=== PATIENT | male | born 1950 | race Caucasian/White ===

== ENCOUNTER 2019-05-16 11:57 | Emergency (ER) | payer MEDICARE, MEDICAID ==
[~2019-05-16] VITALS: Ht 182.9 cm; Wt 99.8 kg
[~2019-05-16 11:57] MED LIST: ASCO100C2
== END 2019-05-16 14:14 | disposition home or self-care (01) ==
LOC: ER 11:57
DX: J20.9 Acute bronchitis, unspecified (principal); Z59.0 Homelessness
CPT/HCPCS: 71045

== ENCOUNTER 2022-01-07 11:49 | Inpatient (IN) | payer MEDICARE, MEDICAID ==
[~2022-01-07] VITALS: Ht 182.9 cm; Wt 107.6 kg
[2022-01-07] MEDS ORDERED: SODIUM CHLORIDE 0.9% 1,000 ML IV ONE ×5 (12:00→18:45)
[2022-01-07] MEDS ORDERED: cefTRIAXone 1GM/50ML D5W 50 ML IV ONE (12:45)
[2022-01-07] MEDS ORDERED: levoFLOXacin 500MG 100 ML IV ONE (12:45)
[2022-01-07 13:54] LABS: Hematocrit 31.3 % (41.0-53.0); Hemoglobin 8.5 g/dL (13.5-17.5); Mean Corpuscular Hemoglobin 16.6 pg (28.0-32.0); Mean Corpuscular Hgb Conc. 27.1 g/dL (32.0-36.0); Mean Corpuscular Volume 61.4 fL (80.0-100.0)
[2022-01-07 13:59] LABS: Red Cell Distribution Width 21.1 % (11.8-14.3)
[2022-01-07 14:05] LABS: White Blood Cell 36.2 10^3/uL (4.4-10.8)
[2022-01-07 14:07] LABS: Basophils % (manual) 0 (0.0-2.0); Blast Cells 0; Eosinophils % (manual) 0 (0-7); Myelocytes % 0; Promyelocytes % 0; Reactive Lymphocytes 0
[2022-01-07 14:14] LABS: Albumin 3.1 g/dL (3.4-5.0); BUN/Creatinine Ratio 8.9; Calcium 9.1 mg/dL (8.5-10.1); Magnesium 1.2 mg/dL (1.6-2.6)
[2022-01-07] MEDS ORDERED: MORPHINE SULFATE INJ 2 MG/ml SYRG IV ONE (14:15)
[2022-01-07] MEDS ORDERED: ONDANSETRON HCL 4 MG/2 ML VIAL IV ONE (14:15)
[2022-01-07 14:17] LABS: Bilirubin, Total 1.5 mg/dL (0.2-1.0); Lactic Acid w/Reflex 10.5 mmol/L (0.4-2.0); Total Protein 6.6 g/dL (6.4-8.2)
[2022-01-07 14:25] LABS: Band Neutrophils % (manual) 37; Lymphocytes % (manual) 3 (10.0-50.0); Metamyelocytes % 5; Monocytes % (manual) 7 (0-12)
[2022-01-07] MEDS ORDERED: HYDROcodone-ACET 5/325MG TAB PO PRN (15:15)
[2022-01-07] MEDS ORDERED: NITROGLYCERIN 0.4 MG SL TAB SL PRN (15:15)
[2022-01-07] MEDS ORDERED: SODIUM CHLORIDE 0.9% 1,000 ML IV SCH ×2 (15:15→15:30)
[2022-01-07] MEDS ORDERED: MORPHINE SULFATE INJ 2 MG/ml SYRG IV PRN (15:15)
[2022-01-07] MEDS ORDERED: DEXTROSE (50%) 50ML SYRG IV PRN (15:45)
[2022-01-07] MEDS ORDERED: LORazepam 2MG/ML-1ML VIAL IV ONE (15:45)
[2022-01-07] MEDS: MORPHINE SULFATE INJ 2 MG/ml SYRG IV PRN (15:52)
[2022-01-07] MEDS ORDERED: SODIUM BICARBONATE 50ML VIAL 50 ML in SOD CHL 0.45% 1,000 ML IV SCH (16:30)
[2022-01-07] MEDS: ACCU-CHEK COMFORT CURVE STRIP VI SCH ×2 (16:52→22:00)
[2022-01-07] MEDS: InsuLIN REG 1unit/0.01ml Soln (100units/ml) SC SCH ×2 (16:52→22:00)
[2022-01-07] MEDS: MAGNESIUM SULFATE 1GM/100ML 100 ML IV SCH ×2 (17:12→18:02)
[2022-01-07] MEDS: SODIUM BICARBONATE 50ML VIAL 50 ML in SOD CHL 0.45% 1,000 ML IV SCH (17:30)
[2022-01-07] MEDS ORDERED: ALBUMIN 5% 50 ML IV ONE (18:45)
[2022-01-07] MEDS ORDERED: NOREPINEPHRINE 8 MG/250ML KIT 250 ML IV ONE (19:23)
[2022-01-07] MEDS: NOREPINEPHRINE 8 MG/250ML KIT 250 ML IV SCH (19:30)
[2022-01-07] MEDS ORDERED: ROCURONIUM 10MG/ML 10ML VIAL IV ONE ×2 (21:31→22:00)
[2022-01-07] MEDS ORDERED: ETOMIDATE (2MG/ML) 20ML VIAL IV ONE ×2 (21:32→22:00)
[2022-01-07 21:35] VITALS: BP 114/42
[2022-01-07] MEDS ORDERED: MIDAZOLAM DRIP 50 mg/50mL 50 ML IV ONE (21:38)
[2022-01-07] MEDS: MIDAZOLAM DRIP 50 mg/50mL 50 ML IV SCH (21:45)
[2022-01-07] MEDS ORDERED: PROPOFOL 100 ML IV SCH (21:45)
[2022-01-07 21:50] LABS: Cholesterol < 50 mg/dL (< 200); LDL Cholesterol 2 mg/dL (< 100); Lactic Acid w/Reflex 7.2 mmol/L (0.4-2.0); Triglycerides 25 mg/dL (< 150)
[2022-01-07] MEDS ORDERED: PROPOFOL 100 ML IV ONE (21:52)
[2022-01-07 21:59] LABS: HDL Cholesterol 47 mg/dL (40-59)
[2022-01-07] MEDS: PROPOFOL 100 ML IV SCH (22:00)
[2022-01-07] MEDS: CLINDAMYCIN 600MG IV 50 ML IV SCH (22:51)
[2022-01-07 23:58] VITALS: BP 111/69
[2022-01-08] VITALS (69 sets, daily range): BP systolic 87–130; BP diastolic 37–69
[2022-01-08] MEDS: SODIUM BICARBONATE 50ML VIAL 50 ML in SOD CHL 0.45% 1,000 ML IV SCH (03:00)
[2022-01-08 04:55] LABS: Hematocrit 30.2 % (41.0-53.0); Mean Corpuscular Hgb Conc. 26.6 g/dL (32.0-36.0)
[2022-01-08 04:56] LABS: Mean Corpuscular Hemoglobin 16.8 pg (28.0-32.0); Mean Corpuscular Volume 63.1 fL (80.0-100.0); Red Blood Cells 4.79 10^6/uL (4.5-5.90)
[2022-01-08 05:15] LABS: BUN/Creatinine Ratio 9.5; Phosphorus 6.7 mg/dL (2.5-4.90)
[2022-01-08 05:25] LABS: Potassium 5.7 mmol/L (3.5-5.1); Red Cell Distribution Width 21.1 % (11.8-14.3); White Blood Cell 32.6 10^3/uL (4.4-10.8)
[2022-01-08 05:26] LABS: Basophils % (manual) 0 (0.0-2.0); Blast Cells 0; Eosinophils % (manual) 0 (0-7); Myelocytes % 0; Promyelocytes % 0; Reactive Lymphocytes 0
[2022-01-08] MEDS: ACCU-CHEK COMFORT CURVE STRIP VI SCH ×4 (06:47→22:16)
[2022-01-08] MEDS: InsuLIN REG 1unit/0.01ml Soln (100units/ml) SC SCH ×4 (06:48→22:50)
[2022-01-08] MEDS: CLINDAMYCIN 600MG IV 50 ML IV SCH ×3 (06:49→22:15)
[2022-01-08] MEDS ORDERED: SODIUM ZIRCONIUM CYCL 10 GM PAK PO ONE (07:00)
[2022-01-08] MEDS ORDERED: SODIUM BICARBONATE 50ML VIAL 150 ML in SOD CHL 0.45% 1,000 ML IV SCH (07:15)
[2022-01-08] MEDS ORDERED: SODIUM BICARBONATE 8.4 % INJ 50ML VIAL IV ONE (07:15)
[2022-01-08] MEDS: PROPOFOL 100 ML IV SCH ×2 (07:28→22:51)
[2022-01-08 07:30] LABS: Band Neutrophils % (manual) 71; Lymphocytes % (manual) 7 (10.0-50.0); Metamyelocytes % 1; Monocytes % (manual) 3 (0-12)
[2022-01-08] MEDS ORDERED: ACETAMINOPHEN 650 MG RECT SUPP PR ONE (08:45)
[2022-01-08] MEDS: cefTRIAXone 1GM/50ML D5W 50 ML IV SCH (09:00)
[2022-01-08] MEDS ORDERED: ENOXAPARIN SOD 40 MG/0.4 ML SYRINGE SC SCH (10:00)
[2022-01-08] MEDS: SODIUM ZIRCONIUM CYCL 10 GM PAK GT SCH ×2 (10:15→22:15)
[2022-01-08] MEDS: SODIUM BICARBONATE 50ML VIAL 150 ML in SOD CHL 0.45% 1,000 ML IV SCH ×2 (10:30→20:02)
[2022-01-08 11:36] LABS: Alcohol, Urine < 3.0 mg/dL (0-10); Amphetamine Screen, Urine POSITIVE (NEGATIVE); Barbiturate Scree,Urine NEGATIVE (NEGATIVE); Benzodiazephine Screen, Urine POSITIVE (NEGATIVE); Cannabinoid Screen, Urine NEGATIVE (NEGATIVE); Cocaine Screen, Urine NEGATIVE (NEGATIVE); Opiate Scree,Urine POSITIVE (NEGATIVE); Phencyclidine Screen, Urine NEGATIVE (NEGATIVE)
[2022-01-08 11:51] LABS: Protein, Urine 352.8 mg/dL (0.0-11.9)
[2022-01-08] MEDS: CALCIUM ACETATE 667 MG CAP NG SCH ×2 (13:26→22:16)
[2022-01-08] MEDS: BUMETANIDE INJECTION 12.5 MG in GIVE UN-DILUTED 0 ML IV SCH (13:27)
[2022-01-08 13:42] LABS: Urine Blood 250 /uL (Negative)
[2022-01-08] MEDS: NOREPINEPHRINE 8 MG/250ML KIT 250 ML IV SCH ×2 (17:18→22:53)
[2022-01-08] MEDS: VASOPRESSIN 50 UNITS in D5W 5% 247.5 ML IV SCH (20:16)
[2022-01-08] MEDS: MIDAZOLAM DRIP 50 mg/50mL 50 ML IV SCH (22:17)
[2022-01-09] VITALS (103 sets, daily range): BP systolic 88–141; BP diastolic 45–65
[2022-01-09] MEDS: MIDAZOLAM DRIP 50 mg/50mL 50 ML IV SCH ×5 (02:23→20:28)
[2022-01-09 05:14] LABS: Hemoglobin 7.3 g/dL (13.5-17.5)
[2022-01-09 05:15] LABS: Hematocrit 25.4 % (41.0-53.0); Mean Corpuscular Hemoglobin 17.1 pg (28.0-32.0); Mean Corpuscular Hgb Conc. 28.8 g/dL (32.0-36.0); Mean Corpuscular Volume 59.2 fL (80.0-100.0); White Blood Cell 29.7 10^3/uL (4.4-10.8)
[2022-01-09] MEDS: SODIUM BICARBONATE 50ML VIAL 150 ML in SOD CHL 0.45% 1,000 ML IV SCH ×2 (05:18→14:06)
[2022-01-09] MEDS: SODIUM ZIRCONIUM CYCL 10 GM PAK GT SCH (05:36)
[2022-01-09] MEDS: CALCIUM ACETATE 667 MG CAP NG SCH ×3 (05:36→22:17)
[2022-01-09] MEDS: CLINDAMYCIN 600MG IV 50 ML IV SCH ×3 (05:37→22:17)
[2022-01-09 05:50] LABS: Basophils % (manual) 0 (0.0-2.0); Blast Cells 0; Metamyelocytes % 0; Myelocytes % 0; Promyelocytes % 0; Reactive Lymphocytes 0
[2022-01-09 05:51] LABS: BUN/Creatinine Ratio 12.2; Calcium 7.1 mg/dL (8.5-10.1); Potassium 4.8 mmol/L (3.5-5.1)
[2022-01-09 06:06] LABS: Lactic Acid w/Reflex 2.4 mmol/L (0.4-2.0)
[2022-01-09] MEDS: ACCU-CHEK COMFORT CURVE STRIP VI SCH ×4 (07:00→20:30)
[2022-01-09] MEDS: InsuLIN REG 1unit/0.01ml Soln (100units/ml) SC SCH ×4 (07:00→20:30)
[2022-01-09 07:39] LABS: Band Neutrophils % (manual) 34; Eosinophils % (manual) 3 (0-7); Lymphocytes % (manual) 1 (10.0-50.0); Monocytes % (manual) 1 (0-12)
[2022-01-09] MEDS: BUMETANIDE INJECTION 12.5 MG in GIVE UN-DILUTED 0 ML IV SCH (07:55)
[2022-01-09] MEDS: ENOXAPARIN SOD 30 MG/0.3 ML SYRINGE SC SCH (09:01)
[2022-01-09] MEDS: PANTOPRAZOLE 40 MG/10 ML VIAL INJ IV SCH (09:02)
[2022-01-09] MEDS: cefTRIAXone 1GM/50ML D5W 50 ML IV SCH (09:02)
[2022-01-09] MEDS: PROPOFOL 100 ML IV SCH ×2 (09:03→18:43)
[2022-01-09] MEDS: NOREPINEPHRINE 8 MG/250ML KIT 250 ML IV SCH ×2 (09:03→18:43)
[2022-01-09] MEDS: VASOPRESSIN 50 UNITS in D5W 5% 247.5 ML IV SCH (10:46)
[2022-01-09] MEDS: ACETAMINOPHEN 325 MG TAB PO PRN (15:37)
[2022-01-09] MEDS ORDERED: LABETALOL HCL 5 MG/ML 4ML SYRINGE IV ONE (16:15)
[2022-01-09] MEDS ORDERED: LABETALOL HCL 5 MG/ML 4ML SYRINGE IV PRN (16:15)
[2022-01-10] VITALS (107 sets, daily range): BP systolic 88–117; BP diastolic 50–65
[2022-01-10] MEDS: SODIUM BICARBONATE 50ML VIAL 150 ML in SOD CHL 0.45% 1,000 ML IV SCH ×2 (00:27→08:34)
[2022-01-10] MEDS: MIDAZOLAM DRIP 50 mg/50mL 50 ML IV SCH (00:28)
[2022-01-10] MEDS: NOREPINEPHRINE 8 MG/250ML KIT 250 ML IV SCH (00:28)
[2022-01-10] MEDS: PROPOFOL 100 ML IV SCH ×2 (00:28→04:44)
[2022-01-10 05:36] LABS: Hemoglobin 7.2 g/dL (13.5-17.5)
[2022-01-10 05:39] LABS: Hematocrit 24.6 % (41.0-53.0); Mean Corpuscular Hemoglobin 16.8 pg (28.0-32.0); Mean Corpuscular Hgb Conc. 29.2 g/dL (32.0-36.0); Mean Corpuscular Volume 57.4 fL (80.0-100.0); Red Blood Cells 4.28 10^6/uL (4.5-5.90); White Blood Cell 25.8 10^3/uL (4.4-10.8)
[2022-01-10 05:41] LABS: Red Cell Distribution Width 20.6 % (11.8-14.3)
[2022-01-10 05:42] LABS: Basophils % (manual) 0 (0.0-2.0); Blast Cells 0; Eosinophils % (manual) 0 (0-7); Metamyelocytes % 0; Myelocytes % 0; Promyelocytes % 0; Reactive Lymphocytes 0
[2022-01-10 05:52] LABS: BUN/Creatinine Ratio 17.2; Calcium 7.3 mg/dL (8.5-10.1); Potassium 3.5 mmol/L (3.5-5.1)
[2022-01-10] MEDS: CLINDAMYCIN 600MG IV 50 ML IV SCH ×3 (05:56→23:22)
[2022-01-10] MEDS: CALCIUM ACETATE 667 MG CAP NG SCH ×3 (05:56→23:22)
[2022-01-10] MEDS: BUMETANIDE INJECTION 12.5 MG in GIVE UN-DILUTED 0 ML IV SCH (05:56)
[2022-01-10 06:21] LABS: Band Neutrophils % (manual) 34; Lymphocytes % (manual) 6 (10.0-50.0); Monocytes % (manual) 3 (0-12)
[2022-01-10] MEDS: ACCU-CHEK COMFORT CURVE STRIP VI SCH ×4 (06:47→22:00)
[2022-01-10] MEDS: InsuLIN REG 1unit/0.01ml Soln (100units/ml) SC SCH ×4 (06:48→22:00)
[2022-01-10] MEDS: cefTRIAXone 1GM/50ML D5W 50 ML IV SCH (09:02)
[2022-01-10] MEDS: ENOXAPARIN SOD 30 MG/0.3 ML SYRINGE SC SCH (09:17)
[2022-01-10] MEDS: PANTOPRAZOLE 40 MG/10 ML VIAL INJ IV SCH (09:17)
[2022-01-10] MEDS: SODIUM CHLORIDE 0.9% 1,000 ML IV SCH (12:15)
[2022-01-10] MEDS: VASOPRESSIN 50 UNITS in D5W 5% 247.5 ML IV SCH (13:15)
[2022-01-10] MEDS: POTASSIUM CHL 20MEQ/100ML 100 ML IV SCH ×2 (14:04→16:23)
[2022-01-11] VITALS (88 sets, daily range): BP systolic 90–109; BP diastolic 42–63
[2022-01-11 05:57] LABS: Hemoglobin 7.3 g/dL (13.5-17.5); Mean Corpuscular Volume 57.3 fL (80.0-100.0)
[2022-01-11 06:00] LABS: Hematocrit 25.2 % (41.0-53.0); Mean Corpuscular Hemoglobin 16.7 pg (28.0-32.0); Mean Corpuscular Hgb Conc. 29.1 g/dL (32.0-36.0); Red Cell Distribution Width 20.4 % (11.8-14.3); White Blood Cell 16.6 10^3/uL (4.4-10.8)
[2022-01-11 06:16] LABS: Potassium 3.5 mmol/L (3.5-5.1)
[2022-01-11 06:19] LABS: Basophils % (manual) 0 (0.0-2.0); Blast Cells 0; Promyelocytes % 0; Reactive Lymphocytes 0
[2022-01-11 06:21] LABS: BUN/Creatinine Ratio 24.4; Phosphorus 3.8 mg/dL (2.5-4.90)
[2022-01-11] MEDS: InsuLIN REG 1unit/0.01ml Soln (100units/ml) SC SCH ×4 (07:00→22:00)
[2022-01-11] MEDS: ACCU-CHEK COMFORT CURVE STRIP VI SCH ×4 (07:04→22:00)
[2022-01-11] MEDS: CLINDAMYCIN 600MG IV 50 ML IV SCH ×3 (07:44→22:00)
[2022-01-11] MEDS: CALCIUM ACETATE 667 MG CAP NG SCH ×3 (07:45→22:00)
[2022-01-11] MEDS: PANTOPRAZOLE 40 MG/10 ML VIAL INJ IV SCH (09:10)
[2022-01-11] MEDS: cefTRIAXone 1GM/50ML D5W 50 ML IV SCH (09:10)
[2022-01-11] MEDS: ENOXAPARIN SOD 30 MG/0.3 ML SYRINGE SC SCH (09:11)
[2022-01-11] MEDS: BUMETANIDE INJECTION 12.5 MG in GIVE UN-DILUTED 0 ML IV SCH (09:24)
[2022-01-11] MEDS: SODIUM CHLORIDE 0.9% 1,000 ML IV SCH ×4 (09:29→20:15)
[2022-01-11 09:41] LABS: Band Neutrophils % (manual) 16; Eosinophils % (manual) 4 (0-7); Lymphocytes % (manual) 14 (10.0-50.0); Metamyelocytes % 2; Monocytes % (manual) 11 (0-12); Myelocytes % 1
[2022-01-11] MEDS: VASOPRESSIN 50 UNITS in D5W 5% 247.5 ML IV SCH (13:15)
[2022-01-11] MEDS ORDERED: LACTULOSE 20Gm/30ML SOLN PO ONE (19:15)
[2022-01-11] MEDS ORDERED: Jevity 1.2 Cal/Fiber 1 Liter GT SCH (19:15)
[2022-01-11] MEDS: NOREPINEPHRINE 8 MG/250ML KIT 250 ML IV SCH (19:30)
[2022-01-11] MEDS: MIDAZOLAM DRIP 50 mg/50mL 50 ML IV SCH (22:00)
[2022-01-11] MEDS: PROPOFOL 100 ML IV SCH (22:00)
[2022-01-12] VITALS (91 sets, daily range): BP systolic 102–130; BP diastolic 60–85
[2022-01-12 06:29] LABS: Hemoglobin 7.7 g/dL (13.5-17.5)
[2022-01-12 06:32] LABS: Hematocrit 26.5 % (41.0-53.0); Mean Corpuscular Hemoglobin 16.7 pg (28.0-32.0); Mean Corpuscular Hgb Conc. 29.2 g/dL (32.0-36.0); Mean Corpuscular Volume 57.1 fL (80.0-100.0); Red Blood Cells 4.63 10^6/uL (4.5-5.90); White Blood Cell 12.3 10^3/uL (4.4-10.8)
[2022-01-12 06:58] LABS: Calcium 8.6 mg/dL (8.5-10.1); Potassium 3.2 mmol/L (3.5-5.1)
[2022-01-12 07:00] LABS: Red Cell Distribution Width 20.9 % (11.8-14.3)
[2022-01-12] MEDS: ACCU-CHEK COMFORT CURVE STRIP VI SCH ×4 (07:00→22:00)
[2022-01-12] MEDS: InsuLIN REG 1unit/0.01ml Soln (100units/ml) SC SCH ×4 (07:00→22:00)
[2022-01-12 07:01] LABS: Basophils % (manual) 0 (0.0-2.0); Blast Cells 0; Myelocytes % 0; Promyelocytes % 0; Reactive Lymphocytes 0
[2022-01-12] MEDS: CALCIUM ACETATE 667 MG CAP NG SCH ×3 (08:09→22:00)
[2022-01-12] MEDS: CLINDAMYCIN 600MG IV 50 ML IV SCH ×3 (08:09→23:10)
[2022-01-12] MEDS: cefTRIAXone 1GM/50ML D5W 50 ML IV SCH (10:01)
[2022-01-12] MEDS: PANTOPRAZOLE 40 MG/10 ML VIAL INJ IV SCH (10:01)
[2022-01-12] MEDS: ENOXAPARIN SOD 30 MG/0.3 ML SYRINGE SC SCH (10:01)
[2022-01-12] MEDS: BUMETANIDE INJECTION 12.5 MG in GIVE UN-DILUTED 0 ML IV SCH (10:45)
[2022-01-12 11:23] LABS: Band Neutrophils % (manual) 20; Eosinophils % (manual) 3 (0-7); Lymphocytes % (manual) 34 (10.0-50.0); Metamyelocytes % 2; Monocytes % (manual) 7 (0-12)
[2022-01-12] MEDS ORDERED: Glucerna 1.2 Cal 1Liter BOTTLE GT SCH (11:30)
[2022-01-12] MEDS: LACTULOSE 20Gm/30ML SOLN PO SCH ×2 (12:00→18:00)
[2022-01-12] MEDS: SODIUM CHLORIDE 0.9% 1,000 ML IV SCH ×2 (12:13→20:15)
[2022-01-12] MEDS: POTASSIUM CHL 20MEQ/100ML 100 ML IV SCH ×3 (12:30→18:30)
[2022-01-12] MEDS: VASOPRESSIN 50 UNITS in D5W 5% 247.5 ML IV SCH (13:15)
[2022-01-12] MEDS: acetaZOLAMIDE SODIUM 500 MG VL IV SCH ×2 (16:57→23:10)
[2022-01-12] MEDS ORDERED: POTASSIUM CHL 20MEQ/100ML 100 ML IV SCH (18:30)
[2022-01-12] MEDS: NOREPINEPHRINE 8 MG/250ML KIT 250 ML IV SCH (19:30)
[2022-01-12] MEDS: MIDAZOLAM DRIP 50 mg/50mL 50 ML IV SCH (22:00)
[2022-01-12] MEDS: PROPOFOL 100 ML IV SCH (22:00)
[2022-01-13] VITALS (102 sets, daily range): BP systolic 111–143; BP diastolic 7–94
[2022-01-13] MEDS: SODIUM CHLORIDE 0.9% 1,000 ML IV SCH ×2 (04:15→12:15)
[2022-01-13] MEDS: CALCIUM ACETATE 667 MG CAP NG SCH ×3 (06:00→23:01)
[2022-01-13] MEDS: LACTULOSE 20Gm/30ML SOLN PO SCH ×4 (06:00→17:22)
[2022-01-13] MEDS: CLINDAMYCIN 600MG IV 50 ML IV SCH ×3 (06:00→23:01)
[2022-01-13 06:03] LABS: Hematocrit 29.6 % (41.0-53.0); Hemoglobin 8.5 g/dL (13.5-17.5); Mean Corpuscular Hgb Conc. 28.9 g/dL (32.0-36.0); Mean Corpuscular Volume 58.9 fL (80.0-100.0); Red Blood Cells 5.03 10^6/uL (4.5-5.90); White Blood Cell 15.3 10^3/uL (4.4-10.8)
[2022-01-13 06:15] LABS: Basophils % (manual) 0 (0.0-2.0); Blast Cells 0; Metamyelocytes % 0; Myelocytes % 0; Promyelocytes % 0
[2022-01-13 06:21] LABS: BUN/Creatinine Ratio 32.2; Calcium 8.4 mg/dL (8.5-10.1); Phosphorus 4.9 mg/dL (2.5-4.90)
[2022-01-13] MEDS: InsuLIN REG 1unit/0.01ml Soln (100units/ml) SC SCH ×4 (06:30→22:00)
[2022-01-13] MEDS: ACCU-CHEK COMFORT CURVE STRIP VI SCH ×4 (06:30→22:00)
[2022-01-13 08:42] LABS: Band Neutrophils % (manual) 22; Lymphocytes % (manual) 20 (10.0-50.0)
[2022-01-13 08:43] LABS: Eosinophils % (manual) 7 (0-7); Monocytes % (manual) 16 (0-12); Reactive Lymphocytes 1
[2022-01-13] MEDS: MORPHINE SULFATE INJ 2 MG/ml SYRG IV PRN (08:48)
[2022-01-13] MEDS: ENOXAPARIN SOD 30 MG/0.3 ML SYRINGE SC SCH (09:33)
[2022-01-13] MEDS: PANTOPRAZOLE 40 MG/10 ML VIAL INJ IV SCH (09:33)
[2022-01-13] MEDS: cefTRIAXone 1GM/50ML D5W 50 ML IV SCH (09:34)
[2022-01-13] MEDS: BUMETANIDE INJECTION 12.5 MG in GIVE UN-DILUTED 0 ML IV SCH (10:45)
[2022-01-13] MEDS: VASOPRESSIN 50 UNITS in D5W 5% 247.5 ML IV SCH (13:15)
[2022-01-13] MEDS ORDERED: SODIUM CHLORIDE 0.9% 1,000 ML IV SCH (13:45)
[2022-01-13] MEDS: NOREPINEPHRINE 8 MG/250ML KIT 250 ML IV SCH (19:30)
[2022-01-13] MEDS: PROPOFOL 100 ML IV SCH (22:00)
[2022-01-13] MEDS: MIDAZOLAM DRIP 50 mg/50mL 50 ML IV SCH (22:00)
[2022-01-14] VITALS (107 sets, daily range): BP systolic 103–157; BP diastolic 63–102
[2022-01-14 05:13] LABS: Hematocrit 30.1 % (41.0-53.0)
[2022-01-14 05:16] LABS: Hemoglobin 8.5 g/dL (13.5-17.5); Mean Corpuscular Hemoglobin 16.7 pg (28.0-32.0); Mean Corpuscular Hgb Conc. 28.2 g/dL (32.0-36.0); Mean Corpuscular Volume 59.1 fL (80.0-100.0); White Blood Cell 16.3 10^3/uL (4.4-10.8)
[2022-01-14 05:23] LABS: Red Cell Distribution Width 20.8 % (11.8-14.3)
[2022-01-14 05:24] LABS: Basophils % (manual) 0 (0.0-2.0); Blast Cells 0; Metamyelocytes % 0; Myelocytes % 0; Promyelocytes % 0; Reactive Lymphocytes 0
[2022-01-14 05:33] LABS: BUN/Creatinine Ratio 43.2; Calcium 8.8 mg/dL (8.5-10.1); Potassium 3.5 mmol/L (3.5-5.1)
[2022-01-14] MEDS: ACCU-CHEK COMFORT CURVE STRIP VI SCH ×4 (07:00→21:53)
[2022-01-14] MEDS: InsuLIN REG 1unit/0.01ml Soln (100units/ml) SC SCH ×4 (07:00→21:53)
[2022-01-14] MEDS: SOD CHL 0.45% 1,000 ML IV SCH ×2 (07:52→21:34)
[2022-01-14] MEDS: CALCIUM ACETATE 667 MG CAP NG SCH ×3 (08:15→21:34)
[2022-01-14] MEDS: CLINDAMYCIN 600MG IV 50 ML IV SCH ×3 (08:16→21:34)
[2022-01-14 08:56] LABS: Band Neutrophils % (manual) 7; Eosinophils % (manual) 3 (0-7); Lymphocytes % (manual) 13 (10.0-50.0); Monocytes % (manual) 7 (0-12)
[2022-01-14] MEDS: ENOXAPARIN SOD 30 MG/0.3 ML SYRINGE SC SCH (09:36)
[2022-01-14] MEDS: FUROSEMIDE 100 MG/10ML VIAL IV SCH (09:36)
[2022-01-14] MEDS: cefTRIAXone 1GM/50ML D5W 50 ML IV SCH (09:37)
[2022-01-14] MEDS: PANTOPRAZOLE 40 MG/10 ML VIAL INJ IV SCH (09:37)
[2022-01-14] MEDS: LACTULOSE 20Gm/30ML SOLN PO SCH ×3 (11:25→23:52)
[2022-01-14] MEDS: ACETAMINOPHEN 325 MG TAB PO PRN (15:04)
[2022-01-14] MEDS: MORPHINE SULFATE INJ 2 MG/ml SYRG IV PRN (15:40)
[2022-01-15] VITALS (86 sets, daily range): BP systolic 95–147; BP diastolic 56–95
[2022-01-15] MEDS: MORPHINE SULFATE INJ 2 MG/ml SYRG IV PRN ×2 (00:15→04:08)
[2022-01-15 05:33] LABS: Hematocrit 28.4 % (41.0-53.0); Hemoglobin 8.1 g/dL (13.5-17.5); Mean Corpuscular Hgb Conc. 28.7 g/dL (32.0-36.0); Mean Corpuscular Volume 59.3 fL (80.0-100.0); Red Blood Cells 4.79 10^6/uL (4.5-5.90); White Blood Cell 18.1 10^3/uL (4.4-10.8)
[2022-01-15 05:45] LABS: Red Cell Distribution Width 20.8 % (11.8-14.3)
[2022-01-15 05:46] LABS: Basophils % (manual) 0 (0.0-2.0); Blast Cells 0; Metamyelocytes % 0; Myelocytes % 0; Promyelocytes % 0
[2022-01-15 05:49] LABS: BUN/Creatinine Ratio 46.2; Calcium 8.3 mg/dL (8.5-10.1); Potassium 3.6 mmol/L (3.5-5.1)
[2022-01-15] MEDS: LACTULOSE 20Gm/30ML SOLN PO SCH ×2 (06:00→12:00)
[2022-01-15] MEDS: CLINDAMYCIN 600MG IV 50 ML IV SCH ×3 (06:04→21:30)
[2022-01-15] MEDS: CALCIUM ACETATE 667 MG CAP NG SCH ×3 (06:04→21:30)
[2022-01-15] MEDS: ACCU-CHEK COMFORT CURVE STRIP VI SCH ×4 (06:49→21:30)
[2022-01-15] MEDS: InsuLIN REG 1unit/0.01ml Soln (100units/ml) SC SCH ×4 (06:49→21:38)
[2022-01-15 07:42] LABS: Band Neutrophils % (manual) 7; Monocytes % (manual) 4 (0-12); Reactive Lymphocytes 1
[2022-01-15 07:43] LABS: Eosinophils % (manual) 3 (0-7); Lymphocytes % (manual) 9 (10.0-50.0)
[2022-01-15] MEDS: cefTRIAXone 1GM/50ML D5W 50 ML IV SCH (08:47)
[2022-01-15] MEDS: ENOXAPARIN SOD 30 MG/0.3 ML SYRINGE SC SCH (10:19)
[2022-01-15] MEDS: FUROSEMIDE 100 MG/10ML VIAL IV SCH (10:19)
[2022-01-15] MEDS: PANTOPRAZOLE 40 MG/10 ML VIAL INJ IV SCH (10:20)
[2022-01-15] MEDS: SOD CHL 0.45% 1,000 ML IV SCH ×2 (12:35→23:57)
[2022-01-15] MEDS ORDERED: LACTULOSE 20Gm/30ML SOLN PO PRN (13:45)
[2022-01-16] VITALS (99 sets, daily range): BP systolic 91–143; BP diastolic 46–87
[2022-01-16 04:51] LABS: Basophils # (auto) 0.1 10 ^3/uL (0-0.2); Basophils % (auto) 0.5 % (0.0-2.0); Eosinophils # (auto) 0.7 10 ^3/uL (0-0.8); Eosinophils % (auto) 4.7 % (0.0-7.0); Hematocrit 29.2 % (41.0-53.0); Hemoglobin 7.9 g/dL (13.5-17.5); Lymphocytes # (auto) 2.2 10 ^3/uL (0.4-5.4); Mean Corpuscular Hemoglobin 16.6 pg (28.0-32.0); Mean Corpuscular Hgb Conc. 27.1 g/dL (32.0-36.0); Mean Corpuscular Volume 61.3 fL (80.0-100.0); Monocytes # (auto) 1.1 10 ^3/uL (0-1.3); Monocytes % (auto) 6.9 % (0.0-12.0); Neutrophils # (auto) 11.8 10 ^3/uL (1.6-8.6); Neutrophils % (auto) 73.9 % (37.0-80.0); Nucleated Red Blood Cells % 0.3 %; Red Blood Cells 4.77 10^6/uL (4.5-5.90); White Blood Cell 15.9 10^3/uL (4.4-10.8)
[2022-01-16 04:52] LABS: Red Cell Distribution Width 21.3 % (11.8-14.3)
[2022-01-16 05:11] LABS: % Iron Saturation 10.6 % (20-55)
[2022-01-16 05:14] LABS: BUN/Creatinine Ratio 55.7; Calcium 8.7 mg/dL (8.5-10.1)
[2022-01-16] MEDS: CALCIUM ACETATE 667 MG CAP NG SCH ×3 (05:50→21:00)
[2022-01-16] MEDS: CLINDAMYCIN 600MG IV 50 ML IV SCH ×3 (05:50→21:46)
[2022-01-16 05:51] LABS: Potassium 2.9 mmol/L (3.5-5.1)
[2022-01-16] MEDS: InsuLIN REG 1unit/0.01ml Soln (100units/ml) SC SCH ×4 (06:27→22:00)
[2022-01-16] MEDS: ACCU-CHEK COMFORT CURVE STRIP VI SCH ×4 (06:27→22:13)
[2022-01-16] MEDS: POTASSIUM CHL 20MEQ/100ML 100 ML IV SCH ×3 (07:58→11:28)
[2022-01-16] MEDS: cefTRIAXone 1GM/50ML D5W 50 ML IV SCH (08:19)
[2022-01-16] MEDS: PANTOPRAZOLE 40 MG/10 ML VIAL INJ IV SCH (09:30)
[2022-01-16] MEDS: ENOXAPARIN SOD 40 MG/0.4 ML SYRINGE SC SCH (09:30)
[2022-01-16] MEDS: AMIODARONE HCL 200 MG TAB PO SCH ×2 (11:27→21:46)
[2022-01-16] MEDS: SOD CHL 0.45% 1,000 ML IV SCH (13:20)
[2022-01-16] MEDS: MORPHINE SULFATE INJ 2 MG/ml SYRG IV PRN (23:37)
[2022-01-17] VITALS (83 sets, daily range): BP systolic 89–128; BP diastolic 35–87
[2022-01-17] MEDS: MORPHINE SULFATE INJ 2 MG/ml SYRG IV PRN (03:51)
[2022-01-17] MEDS: SOD CHL 0.45% 1,000 ML IV SCH ×2 (03:54→16:00)
[2022-01-17] MEDS: CALCIUM ACETATE 667 MG CAP NG SCH ×3 (05:06→21:26)
[2022-01-17 05:07] LABS: Basophils # (auto) 0.1 10 ^3/uL (0-0.2); Basophils % (auto) 0.6 % (0.0-2.0); Eosinophils # (auto) 0.7 10 ^3/uL (0-0.8); Hemoglobin 7.9 g/dL (13.5-17.5); Monocytes # (auto) 1.1 10 ^3/uL (0-1.3); Nucleated Red Blood Cells % 0.2 %
[2022-01-17 05:10] LABS: Eosinophils % (auto) 5.5 % (0.0-7.0); Hematocrit 27.8 % (41.0-53.0); Lymphocytes # (auto) 1.7 10 ^3/uL (0.4-5.4); Lymphocytes % (auto) 13.6 % (10.0-50.0); Mean Corpuscular Hemoglobin 17.5 pg (28.0-32.0); Mean Corpuscular Hgb Conc. 28.3 g/dL (32.0-36.0); Mean Corpuscular Volume 61.8 fL (80.0-100.0); Neutrophils # (auto) 9.1 10 ^3/uL (1.6-8.6); Neutrophils % (auto) 71.3 % (37.0-80.0); White Blood Cell 12.7 10^3/uL (4.4-10.8)
[2022-01-17 05:31] LABS: Calcium 8.9 mg/dL (8.5-10.1); Potassium 3.5 mmol/L (3.5-5.1)
[2022-01-17] MEDS: CLINDAMYCIN 600MG IV 50 ML IV SCH ×3 (06:11→21:41)
[2022-01-17] MEDS: InsuLIN REG 1unit/0.01ml Soln (100units/ml) SC SCH ×4 (06:11→21:42)
[2022-01-17] MEDS: ACCU-CHEK COMFORT CURVE STRIP VI SCH ×4 (06:12→21:43)
[2022-01-17] MEDS: cefTRIAXone 1GM/50ML D5W 50 ML IV SCH (09:06)
[2022-01-17] MEDS: PANTOPRAZOLE 40 MG/10 ML VIAL INJ IV SCH (09:23)
[2022-01-17] MEDS: ENOXAPARIN SOD 40 MG/0.4 ML SYRINGE SC SCH (09:24)
[2022-01-17] MEDS: AMIODARONE HCL 200 MG TAB PO SCH ×2 (09:24→21:30)
[2022-01-18] VITALS (8 sets, daily range): BP systolic 104–133; BP diastolic 61–77
[2022-01-18] MEDS: SOD CHL 0.45% 1,000 ML IV SCH ×2 (03:48→18:45)
[2022-01-18] MEDS: ACCU-CHEK COMFORT CURVE STRIP VI SCH ×4 (05:33→22:03)
[2022-01-18] MEDS: InsuLIN REG 1unit/0.01ml Soln (100units/ml) SC SCH ×4 (05:33→22:00)
[2022-01-18] MEDS: CLINDAMYCIN 600MG IV 50 ML IV SCH ×3 (05:34→22:09)
[2022-01-18] MEDS: CALCIUM ACETATE 667 MG CAP NG SCH ×3 (06:00→22:00)
[2022-01-18 06:29] LABS: Basophils # (auto) 0.1 10 ^3/uL (0-0.2); Hemoglobin 8.1 g/dL (13.5-17.5); Monocytes # (auto) 1.2 10 ^3/uL (0-1.3)
[2022-01-18 06:30] LABS: Basophils % (auto) 0.7 % (0.0-2.0); Eosinophils # (auto) 0.4 10 ^3/uL (0-0.8); Eosinophils % (auto) 3.7 % (0.0-7.0); Hematocrit 27.7 % (41.0-53.0); Lymphocytes # (auto) 1.7 10 ^3/uL (0.4-5.4); Lymphocytes % (auto) 14.7 % (10.0-50.0); Mean Corpuscular Hgb Conc. 29.3 g/dL (32.0-36.0); Mean Corpuscular Volume 61.5 fL (80.0-100.0); Monocytes % (auto) 10.3 % (0.0-12.0); Neutrophils # (auto) 8.4 10 ^3/uL (1.6-8.6); Neutrophils % (auto) 70.6 % (37.0-80.0); Nucleated Red Blood Cells % 0.3 %; White Blood Cell 11.9 10^3/uL (4.4-10.8)
[2022-01-18 06:33] LABS: Red Cell Distribution Width 21.3 % (11.8-14.3)
[2022-01-18 06:40] LABS: BUN/Creatinine Ratio 42.5; Calcium 8.3 mg/dL (8.5-10.1); Potassium 3.6 mmol/L (3.5-5.1)
[2022-01-18] MEDS: PANTOPRAZOLE 40 MG/10 ML VIAL INJ IV SCH (09:22)
[2022-01-18] MEDS: ENOXAPARIN SOD 40 MG/0.4 ML SYRINGE SC SCH (09:23)
[2022-01-18] MEDS: AMIODARONE HCL 200 MG TAB PO SCH ×2 (10:00→22:00)
[2022-01-19 04:17] VITALS: BP 123/79
[2022-01-19] MEDS: CLINDAMYCIN 600MG IV 50 ML IV SCH ×3 (04:29→22:33)
[2022-01-19] MEDS: ACCU-CHEK COMFORT CURVE STRIP VI SCH ×4 (04:37→22:33)
[2022-01-19] MEDS: InsuLIN REG 1unit/0.01ml Soln (100units/ml) SC SCH ×4 (04:37→22:00)
[2022-01-19] MEDS: CALCIUM ACETATE 667 MG CAP NG SCH ×3 (06:00→22:00)
[2022-01-19] MEDS: AMIODARONE HCL 200 MG TAB PO SCH ×2 (10:00→22:00)
[2022-01-19] MEDS: PANTOPRAZOLE 40 MG/10 ML VIAL INJ IV SCH (11:18)
[2022-01-19] MEDS: ENOXAPARIN SOD 40 MG/0.4 ML SYRINGE SC SCH (11:18)
[2022-01-19] MEDS: SOD CHL 0.45% 1,000 ML IV SCH ×2 (11:27→22:33)
[2022-01-19 13:17] VITALS: BP 126/70
[2022-01-19 17:00] VITALS: BP 120/69
[2022-01-19 22:00] VITALS: BP 119/62
[2022-01-20 05:00] VITALS: BP 139/78
[2022-01-20] MEDS: D5W/SOD CHL 0.45% 1,000 ML IV SCH ×2 (06:00→19:20)
[2022-01-20] MEDS: CLINDAMYCIN 600MG IV 50 ML IV SCH ×3 (06:00→22:24)
[2022-01-20] MEDS: CALCIUM ACETATE 667 MG CAP NG SCH ×3 (06:00→22:24)
[2022-01-20] MEDS ORDERED: ACETAMINOPHEN 325 MG RECT SUPP PR PRN (06:15)
[2022-01-20] MEDS: InsuLIN REG 1unit/0.01ml Soln (100units/ml) SC SCH ×4 (07:00→22:00)
[2022-01-20] MEDS: ACCU-CHEK COMFORT CURVE STRIP VI SCH ×4 (07:29→22:19)
[2022-01-20 09:00] VITALS: BP 119/66
[2022-01-20] MEDS: AMIODARONE HCL 200 MG TAB PO SCH ×2 (10:00→22:24)
[2022-01-20] MEDS: ENOXAPARIN SOD 40 MG/0.4 ML SYRINGE SC SCH (10:48)
[2022-01-20] MEDS: PANTOPRAZOLE 40 MG/10 ML VIAL INJ IV SCH (10:48)
[2022-01-20 12:40] VITALS: BP 128/72
[2022-01-20 17:00] VITALS: BP 116/66
[2022-01-20] MEDS ORDERED: ALBUTEROL SULF 2.5 MG/0.5ML(0.5%) NEB SOLN ONE (21:43)
[2022-01-20] MEDS ORDERED: IPRATROPIUM BROM 0.5 MG/2.5ML INH SOL ONE (21:43)
[2022-01-20] MEDS ORDERED: ALBUTEROL SULF 2.5 MG/0.5ML(0.5%) NEB SOLN NEB ONE (21:45)
[2022-01-20] MEDS ORDERED: IPRATROPIUM BROM 0.5 MG/2.5ML INH SOL NEB ONE (21:45)
[2022-01-20 22:00] VITALS: BP 117/72
[2022-01-20] MEDS: TEMAZEPAM 15 MG CAP PO PRN (22:25)
[2022-01-21] MEDS ORDERED: ALBUTEROL SULF 2.5 MG/0.5ML(0.5%) NEB SOLN ONE (00:56)
[2022-01-21] MEDS ORDERED: IPRATROPIUM BROM 0.5 MG/2.5ML INH SOL ONE (00:56)
[2022-01-21] MEDS ORDERED: methylPREDNISolone SOD SUCC 125 MG/2 ML VL IV ONE (01:00)
[2022-01-21] MEDS: ALBUTEROL SULF 2.5 MG/0.5ML(0.5%) NEB SOLN NEB SCH ×6 (02:00→22:00)
[2022-01-21] MEDS: IPRATROPIUM BROM 0.5 MG/2.5ML INH SOL NEB SCH ×6 (02:00→22:00)
[2022-01-21 05:45] VITALS: BP 132/81
[2022-01-21 05:56] LABS: Basophils # (auto) 0.1 10 ^3/uL (0-0.2); Basophils % (auto) 0.5 % (0.0-2.0); Eosinophils # (auto) 0.2 10 ^3/uL (0-0.8); Eosinophils % (auto) 1.3 % (0.0-7.0); Hematocrit 29.6 % (41.0-53.0); Hemoglobin 8.3 g/dL (13.5-17.5); Lymphocytes # (auto) 0.6 10 ^3/uL (0.4-5.4); Lymphocytes % (auto) 4.3 % (10.0-50.0); Mean Corpuscular Hemoglobin 17.8 pg (28.0-32.0); Mean Corpuscular Hgb Conc. 27.9 g/dL (32.0-36.0); Mean Corpuscular Volume 63.9 fL (80.0-100.0); Monocytes # (auto) 0.2 10 ^3/uL (0-1.3); Monocytes % (auto) 1.4 % (0.0-12.0); Neutrophils # (auto) 14.1 10 ^3/uL (1.6-8.6); Neutrophils % (auto) 92.5 % (37.0-80.0); Nucleated Red Blood Cells % 0.2 %; Red Blood Cells 4.63 10^6/uL (4.5-5.90); White Blood Cell 15.2 10^3/uL (4.4-10.8)
[2022-01-21] MEDS: CALCIUM ACETATE 667 MG CAP NG SCH ×3 (06:00→22:00)
[2022-01-21] MEDS ORDERED: ALBUTEROL MEDNEB 2.5 mg/3ml NEB ONE (06:05)
[2022-01-21] MEDS: CLINDAMYCIN 600MG IV 50 ML IV SCH ×3 (06:37→22:24)
[2022-01-21] MEDS: ACCU-CHEK COMFORT CURVE STRIP VI SCH ×4 (06:38→22:25)
[2022-01-21] MEDS: InsuLIN REG 1unit/0.01ml Soln (100units/ml) SC SCH ×4 (06:39→22:00)
[2022-01-21 06:51] LABS: BUN/Creatinine Ratio 25.5; Calcium 8.4 mg/dL (8.5-10.1); Potassium 3.9 mmol/L (3.5-5.1)
[2022-01-21 07:12] LABS: Red Cell Distribution Width 21.8 % (11.8-14.3)
[2022-01-21] MEDS: D5W/SOD CHL 0.45% 1,000 ML IV SCH ×2 (08:40→22:00)
[2022-01-21 09:00] VITALS: BP 122/48
[2022-01-21 09:10] VITALS: BP 122/48
[2022-01-21] MEDS: AMIODARONE HCL 200 MG TAB PO SCH ×2 (10:00→22:00)
[2022-01-21] MEDS: PANTOPRAZOLE 40 MG/10 ML VIAL INJ IV SCH (10:41)
[2022-01-21] MEDS: ENOXAPARIN SOD 40 MG/0.4 ML SYRINGE SC SCH (10:41)
[2022-01-21 13:00] VITALS: BP 129/66
[2022-01-21] MEDS: LORazepam 2MG/ML-1ML VIAL IV PRN ×2 (14:27→18:20)
[2022-01-21 17:00] VITALS: BP 118/68
[2022-01-21 21:43] VITALS: BP 124/60
[2022-01-22] MEDS: IPRATROPIUM BROM 0.5 MG/2.5ML INH SOL NEB SCH ×5 (02:00→20:14)
[2022-01-22] MEDS: ALBUTEROL SULF 2.5 MG/0.5ML(0.5%) NEB SOLN NEB SCH ×5 (02:00→20:14)
[2022-01-22] MEDS: LORazepam 2MG/ML-1ML VIAL IV PRN (03:42)
[2022-01-22 05:26] LABS: Basophils # (auto) 0 10 ^3/uL (0-0.2); Basophils % (auto) 0.4 % (0.0-2.0); Eosinophils # (auto) 0 10 ^3/uL (0-0.8); Hemoglobin 7.3 g/dL (13.5-17.5); Lymphocytes # (auto) 2.7 10 ^3/uL (0.4-5.4); Mean Corpuscular Hemoglobin 18.2 pg (28.0-32.0); Mean Corpuscular Hgb Conc. 28.6 g/dL (32.0-36.0)
[2022-01-22] MEDS: CLINDAMYCIN 600MG IV 50 ML IV SCH ×3 (05:27→21:59)
[2022-01-22] MEDS: CALCIUM ACETATE 667 MG CAP NG SCH ×3 (05:28→22:16)
[2022-01-22 05:29] LABS: Eosinophils % (auto) 0.4 % (0.0-7.0); Hematocrit 25.5 % (41.0-53.0); Lymphocytes % (auto) 25.9 % (10.0-50.0); Mean Corpuscular Volume 63.6 fL (80.0-100.0); Monocytes % (auto) 9.8 % (0.0-12.0); Neutrophils # (auto) 6.6 10 ^3/uL (1.6-8.6); Neutrophils % (auto) 63.5 % (37.0-80.0); Nucleated Red Blood Cells % 0.1 %; White Blood Cell 10.4 10^3/uL (4.4-10.8)
[2022-01-22 05:31] LABS: Red Cell Distribution Width 22.4 % (11.8-14.3)
[2022-01-22 05:42] VITALS: BP 123/68
[2022-01-22 05:51] LABS: BUN/Creatinine Ratio 25.3; Calcium 8.5 mg/dL (8.5-10.1); Potassium 3.5 mmol/L (3.5-5.1)
[2022-01-22] MEDS: InsuLIN REG 1unit/0.01ml Soln (100units/ml) SC SCH ×4 (06:16→22:00)
[2022-01-22] MEDS: ACCU-CHEK COMFORT CURVE STRIP VI SCH ×4 (06:18→22:00)
[2022-01-22 08:39] VITALS: BP 128/73
[2022-01-22] MEDS: AMIODARONE HCL 200 MG TAB PO SCH ×2 (10:00→22:14)
[2022-01-22] MEDS: ENOXAPARIN SOD 40 MG/0.4 ML SYRINGE SC SCH (10:25)
[2022-01-22] MEDS: PANTOPRAZOLE 40 MG/10 ML VIAL INJ IV SCH (10:25)
[2022-01-22] MEDS: D5W/SOD CHL 0.45% 1,000 ML IV SCH (11:20)
[2022-01-22 13:00] VITALS: BP 129/79
[2022-01-22] MEDS ORDERED: KETOROLAC TROMETH 30 MG/ML 1ML VIAL IV ONE (16:30)
[2022-01-22 16:43] VITALS: BP 121/75
[2022-01-22 21:39] VITALS: BP 106/60
[2022-01-23] MEDS: D5W/SOD CHL 0.45% 1,000 ML IV SCH ×2 (00:40→14:08)
[2022-01-23] MEDS: ALBUTEROL SULF 2.5 MG/0.5ML(0.5%) NEB SOLN NEB SCH ×4 (01:04→19:08)
[2022-01-23] MEDS: IPRATROPIUM BROM 0.5 MG/2.5ML INH SOL NEB SCH ×4 (01:05→19:08)
[2022-01-23 05:00] VITALS: BP_SYST 127; BP_SYST 129; BP_DIAS 64; BP_DIAS 67
[2022-01-23 05:45] LABS: Basophils # (auto) 0.1 10 ^3/uL (0-0.2); Eosinophils # (auto) 0.2 10 ^3/uL (0-0.8); Hematocrit 26.4 % (41.0-53.0); Monocytes # (auto) 1.1 10 ^3/uL (0-1.3); Nucleated Red Blood Cells % 0.1 %
[2022-01-23 05:47] LABS: Basophils % (auto) 0.7 % (0.0-2.0); Eosinophils % (auto) 1.9 % (0.0-7.0); Hemoglobin 7.8 g/dL (13.5-17.5); Lymphocytes # (auto) 2.9 10 ^3/uL (0.4-5.4); Mean Corpuscular Hgb Conc. 29.5 g/dL (32.0-36.0); Mean Corpuscular Volume 64.3 fL (80.0-100.0); Neutrophils # (auto) 8.3 10 ^3/uL (1.6-8.6); Neutrophils % (auto) 65.4 % (37.0-80.0); Red Blood Cells 4.11 10^6/uL (4.5-5.90); White Blood Cell 12.7 10^3/uL (4.4-10.8)
[2022-01-23 05:50] LABS: Calcium 8.2 mg/dL (8.5-10.1); Potassium 3.7 mmol/L (3.5-5.1)
[2022-01-23 05:52] LABS: BUN/Creatinine Ratio 30.3
[2022-01-23] MEDS: CALCIUM ACETATE 667 MG CAP NG SCH ×3 (06:30→22:51)
[2022-01-23] MEDS: InsuLIN REG 1unit/0.01ml Soln (100units/ml) SC SCH ×4 (06:30→22:00)
[2022-01-23] MEDS: CLINDAMYCIN 600MG IV 50 ML IV SCH ×3 (06:30→22:50)
[2022-01-23] MEDS: ACCU-CHEK COMFORT CURVE STRIP VI SCH ×4 (06:31→22:00)
[2022-01-23 06:35] LABS: Red Cell Distribution Width 21.7 % (11.8-14.3)
[2022-01-23 09:00] VITALS: BP 113/60
[2022-01-23] MEDS: DAKINS QUARTER STR 0.125% (NaHypochlorite) 473 ML TOPICAL SOL TOP SCH (10:20)
[2022-01-23] MEDS: ENOXAPARIN SOD 40 MG/0.4 ML SYRINGE SC SCH (10:20)
[2022-01-23] MEDS: PANTOPRAZOLE 40 MG/10 ML VIAL INJ IV SCH (10:21)
[2022-01-23] MEDS: AMIODARONE HCL 200 MG TAB PO SCH ×2 (10:21→22:51)
[2022-01-23 13:00] VITALS: BP 113/71
[2022-01-23 17:00] VITALS: BP 115/89
[2022-01-23 22:00] VITALS: BP 106/67
[2022-01-23] MEDS: LORazepam 2MG/ML-1ML VIAL IV PRN (22:51)
[2022-01-24] MEDS: D5W/SOD CHL 0.45% 1,000 ML IV SCH ×2 (03:20→17:30)
[2022-01-24 04:00] VITALS: BP 106/67
[2022-01-24 05:00] VITALS: BP 117/66
[2022-01-24 05:17] LABS: Basophils # (auto) 0.1 10 ^3/uL (0-0.2); Eosinophils # (auto) 0.3 10 ^3/uL (0-0.8); Hemoglobin 7.8 g/dL (13.5-17.5); Lymphocytes # (auto) 2.7 10 ^3/uL (0.4-5.4); Mean Corpuscular Volume 64.2 fL (80.0-100.0); Nucleated Red Blood Cells % 0.1 %
[2022-01-24 05:19] LABS: Basophils % (auto) 0.7 % (0.0-2.0); Eosinophils % (auto) 3.6 % (0.0-7.0); Hematocrit 26.2 % (41.0-53.0); Lymphocytes % (auto) 28.2 % (10.0-50.0); Mean Corpuscular Hgb Conc. 29.7 g/dL (32.0-36.0); Monocytes # (auto) 0.8 10 ^3/uL (0-1.3); Monocytes % (auto) 8.2 % (0.0-12.0); Neutrophils # (auto) 5.6 10 ^3/uL (1.6-8.6); Neutrophils % (auto) 59.3 % (37.0-80.0); Red Blood Cells 4.07 10^6/uL (4.5-5.90); White Blood Cell 9.5 10^3/uL (4.4-10.8)
[2022-01-24 05:38] LABS: Potassium 3.6 mmol/L (3.5-5.1)
[2022-01-24 06:20] LABS: Red Cell Distribution Width 23.1 % (11.8-14.3)
[2022-01-24] MEDS: InsuLIN REG 1unit/0.01ml Soln (100units/ml) SC SCH ×4 (06:27→22:00)
[2022-01-24] MEDS: ACCU-CHEK COMFORT CURVE STRIP VI SCH ×4 (06:28→22:00)
[2022-01-24] MEDS: CALCIUM ACETATE 667 MG CAP NG SCH ×3 (06:32→21:25)
[2022-01-24] MEDS: CLINDAMYCIN 600MG IV 50 ML IV SCH ×3 (06:32→21:26)
[2022-01-24] MEDS: ALBUTEROL SULF 2.5 MG/0.5ML(0.5%) NEB SOLN NEB SCH ×4 (06:40→19:25)
[2022-01-24] MEDS: IPRATROPIUM BROM 0.5 MG/2.5ML INH SOL NEB SCH ×4 (06:40→19:25)
[2022-01-24 09:00] VITALS: BP 113/69
[2022-01-24 13:00] VITALS: BP 121/58
[2022-01-24] MEDS: ENOXAPARIN SOD 40 MG/0.4 ML SYRINGE SC SCH (14:08)
[2022-01-24] MEDS: AMIODARONE HCL 200 MG TAB PO SCH ×2 (14:08→21:25)
[2022-01-24] MEDS: DAKINS QUARTER STR 0.125% (NaHypochlorite) 473 ML TOPICAL SOL TOP SCH (14:08)
[2022-01-24] MEDS: PANTOPRAZOLE 40 MG/10 ML VIAL INJ IV SCH (14:08)
[2022-01-24 17:00] VITALS: BP 118/78
[2022-01-24] MEDS: LORazepam 2MG/ML-1ML VIAL IV PRN (23:27)
[2022-01-25] MEDS: IPRATROPIUM BROM 0.5 MG/2.5ML INH SOL NEB SCH ×4 (01:10→19:26)
[2022-01-25] MEDS: ALBUTEROL SULF 2.5 MG/0.5ML(0.5%) NEB SOLN NEB SCH ×4 (01:10→19:26)
[2022-01-25 05:00] VITALS: BP 116/68
[2022-01-25] MEDS: InsuLIN REG 1unit/0.01ml Soln (100units/ml) SC SCH ×4 (05:47→22:00)
[2022-01-25] MEDS: ACCU-CHEK COMFORT CURVE STRIP VI SCH ×4 (05:48→22:03)
[2022-01-25] MEDS: CALCIUM ACETATE 667 MG CAP NG SCH ×4 (05:50→21:45)
[2022-01-25] MEDS: CLINDAMYCIN 600MG IV 50 ML IV SCH ×3 (05:55→21:45)
[2022-01-25] MEDS: D5W/SOD CHL 0.45% 1,000 ML IV SCH ×2 (05:56→16:22)
[2022-01-25] MEDS: LORazepam 2MG/ML-1ML VIAL IV PRN ×2 (08:42→16:22)
[2022-01-25 09:00] VITALS: BP 129/76
[2022-01-25] MEDS: ENOXAPARIN SOD 40 MG/0.4 ML SYRINGE SC SCH (10:00)
[2022-01-25] MEDS: PANTOPRAZOLE 40 MG/10 ML VIAL INJ IV SCH (10:00)
[2022-01-25] MEDS: AMIODARONE HCL 200 MG TAB PO SCH ×2 (10:00→21:45)
[2022-01-25] MEDS: DAKINS QUARTER STR 0.125% (NaHypochlorite) 473 ML TOPICAL SOL TOP SCH (10:00)
[2022-01-25 10:34] LABS: BUN/Creatinine Ratio 21.1; Potassium 4.2 mmol/L (3.5-5.1)
[2022-01-25 12:39] VITALS: BP 124/81
[2022-01-25 17:00] VITALS: BP 127/68
[2022-01-25 22:00] VITALS: BP 128/72
[2022-01-26] MEDS: ALBUTEROL SULF 2.5 MG/0.5ML(0.5%) NEB SOLN NEB SCH ×4 (01:20→19:16)
[2022-01-26] MEDS: IPRATROPIUM BROM 0.5 MG/2.5ML INH SOL NEB SCH ×4 (01:20→19:16)
[2022-01-26 05:00] VITALS: BP 109/64
[2022-01-26] MEDS: CALCIUM ACETATE 667 MG CAP NG SCH ×3 (05:36→22:00)
[2022-01-26] MEDS: ACCU-CHEK COMFORT CURVE STRIP VI SCH ×4 (06:05→22:00)
[2022-01-26] MEDS: InsuLIN REG 1unit/0.01ml Soln (100units/ml) SC SCH ×4 (06:05→22:00)
[2022-01-26] MEDS: D5W/SOD CHL 0.45% 1,000 ML IV SCH ×2 (06:59→19:08)
[2022-01-26 07:06] LABS: BUN/Creatinine Ratio 20.4; Calcium 7.7 mg/dL (8.5-10.1); Potassium 3.6 mmol/L (3.5-5.1)
[2022-01-26 08:58] VITALS: BP 123/76
[2022-01-26] MEDS: AMIODARONE HCL 200 MG TAB PO SCH ×2 (09:07→22:00)
[2022-01-26] MEDS: PANTOPRAZOLE 40 MG/10 ML VIAL INJ IV SCH (09:07)
[2022-01-26] MEDS: ENOXAPARIN SOD 40 MG/0.4 ML SYRINGE SC SCH (09:08)
[2022-01-26] MEDS: DAKINS QUARTER STR 0.125% (NaHypochlorite) 473 ML TOPICAL SOL TOP SCH (11:41)
[2022-01-26 13:09] VITALS: BP 127/73
[2022-01-26 17:00] VITALS: BP 104/76
[2022-01-26 20:54] VITALS: BP 104/76
[2022-01-27] MEDS: ALBUTEROL SULF 2.5 MG/0.5ML(0.5%) NEB SOLN NEB SCH ×4 (00:26→18:17)
[2022-01-27] MEDS: IPRATROPIUM BROM 0.5 MG/2.5ML INH SOL NEB SCH ×4 (00:26→18:17)
[2022-01-27 05:00] VITALS: BP 135/79
[2022-01-27] MEDS: CALCIUM ACETATE 667 MG CAP NG SCH ×3 (06:00→21:00)
[2022-01-27] MEDS: ACCU-CHEK COMFORT CURVE STRIP VI SCH ×4 (06:45→21:01)
[2022-01-27] MEDS: InsuLIN REG 1unit/0.01ml Soln (100units/ml) SC SCH ×4 (06:45→21:01)
[2022-01-27 08:00] VITALS: BP 138/69
[2022-01-27 09:04] LABS: Basophils # (auto) 0.1 10 ^3/uL (0-0.2); Eosinophils # (auto) 0.3 10 ^3/uL (0-0.8); Hematocrit 30.1 % (41.0-53.0)
[2022-01-27 09:08] LABS: Basophils % (auto) 0.7 % (0.0-2.0); Eosinophils % (auto) 2.5 % (0.0-7.0); Hemoglobin 8.7 g/dL (13.5-17.5); Lymphocytes # (auto) 1.8 10 ^3/uL (0.4-5.4); Lymphocytes % (auto) 15.5 % (10.0-50.0); Mean Corpuscular Hemoglobin 19.1 pg (28.0-32.0); Monocytes # (auto) 1.4 10 ^3/uL (0-1.3); Monocytes % (auto) 11.9 % (0.0-12.0); Neutrophils # (auto) 8.3 10 ^3/uL (1.6-8.6); Neutrophils % (auto) 69.4 % (37.0-80.0); Red Blood Cells 4.56 10^6/uL (4.5-5.90); White Blood Cell 11.9 10^3/uL (4.4-10.8)
[2022-01-27 09:23] LABS: BUN/Creatinine Ratio 14.1; Calcium 7.7 mg/dL (8.5-10.1); Potassium 3.3 mmol/L (3.5-5.1)
[2022-01-27 09:25] LABS: Red Cell Distribution Width 31.4 % (11.8-14.3)
[2022-01-27] MEDS: AMIODARONE HCL 200 MG TAB PO SCH ×2 (09:34→21:01)
[2022-01-27] MEDS: ENOXAPARIN SOD 40 MG/0.4 ML SYRINGE SC SCH (09:34)
[2022-01-27] MEDS: PANTOPRAZOLE 40 MG/10 ML VIAL INJ IV SCH (09:34)
[2022-01-27] MEDS: D5W/SOD CHL 0.45% 1,000 ML IV SCH (09:35)
[2022-01-27] MEDS: DAKINS QUARTER STR 0.125% (NaHypochlorite) 473 ML TOPICAL SOL TOP SCH (10:00)
[2022-01-27] MEDS: LORazepam 2MG/ML-1ML VIAL IV PRN ×2 (13:57→21:52)
[2022-01-27 16:00] VITALS: BP 127/96
[2022-01-27 22:00] VITALS: BP 111/60
[2022-01-28] MEDS: ALBUTEROL SULF 2.5 MG/0.5ML(0.5%) NEB SOLN NEB SCH ×5 (00:29→23:44)
[2022-01-28] MEDS: IPRATROPIUM BROM 0.5 MG/2.5ML INH SOL NEB SCH ×5 (00:29→23:44)
[2022-01-28] MEDS: LORazepam 2MG/ML-1ML VIAL IV PRN ×4 (03:55→17:51)
[2022-01-28] MEDS: CALCIUM ACETATE 667 MG CAP NG SCH ×3 (05:53→21:20)
[2022-01-28 06:06] LABS: Calcium 7.9 mg/dL (8.5-10.1); Potassium 3.3 mmol/L (3.5-5.1)
[2022-01-28 06:08] LABS: BUN/Creatinine Ratio 16.4
[2022-01-28] MEDS: InsuLIN REG 1unit/0.01ml Soln (100units/ml) SC SCH ×4 (06:17→22:00)
[2022-01-28] MEDS: ACCU-CHEK COMFORT CURVE STRIP VI SCH ×4 (06:17→22:16)
[2022-01-28 09:00] VITALS: BP 155/69
[2022-01-28] MEDS: AMIODARONE HCL 200 MG TAB PO SCH ×2 (09:03→21:20)
[2022-01-28] MEDS: DAKINS QUARTER STR 0.125% (NaHypochlorite) 473 ML TOPICAL SOL TOP SCH (09:03)
[2022-01-28] MEDS: PANTOPRAZOLE 40 MG/10 ML VIAL INJ IV SCH (09:11)
[2022-01-28] MEDS ORDERED: FUROSEMIDE 20 MG/2 ML VIAL IV ONE (09:45)
[2022-01-28 13:00] VITALS: BP 136/86
[2022-01-28] MEDS ORDERED: POTASSIUM CHLORIDE 60 MEQ, LIDOCAINE 1% (LOCAL ANESTH.) 6 ML in SODIUM CHL 0.9% 500 ML IV ONE (13:30)
[2022-01-28] MEDS ORDERED: METOPROLOL SUCCINATE XL 50 MG TAB PO ONE (13:30)
[2022-01-28 17:30] VITALS: BP 160/73
[2022-01-28] MEDS: FUROSEMIDE 20 MG/2 ML VIAL IV SCH (17:51)
[2022-01-28 22:00] VITALS: BP 137/84
[2022-01-29] MEDS: TEMAZEPAM 15 MG CAP PO PRN (01:32)
[2022-01-29 05:00] VITALS: BP 146/75
[2022-01-29] MEDS: ACCU-CHEK COMFORT CURVE STRIP VI SCH ×4 (05:51→21:50)
[2022-01-29] MEDS: CALCIUM ACETATE 667 MG CAP NG SCH (05:51)
[2022-01-29] MEDS: InsuLIN REG 1unit/0.01ml Soln (100units/ml) SC SCH ×4 (05:51→21:50)
[2022-01-29] MEDS: FUROSEMIDE 20 MG/2 ML VIAL IV SCH ×2 (05:51→17:44)
[2022-01-29] MEDS: IPRATROPIUM BROM 0.5 MG/2.5ML INH SOL NEB SCH ×3 (06:10→18:49)
[2022-01-29] MEDS: ALBUTEROL SULF 2.5 MG/0.5ML(0.5%) NEB SOLN NEB SCH ×3 (06:10→18:49)
[2022-01-29 07:58] LABS: BUN/Creatinine Ratio 11.9; Calcium 8.4 mg/dL (8.5-10.1); Potassium 3.7 mmol/L (3.5-5.1)
[2022-01-29 09:00] VITALS: BP 121/83
[2022-01-29] MEDS: AMIODARONE HCL 200 MG TAB PO SCH ×2 (09:01→21:48)
[2022-01-29] MEDS: METOPROLOL SUCCINATE XL 50 MG TAB PO SCH (09:02)
[2022-01-29 09:10] LABS: Basophils # (auto) 0.1 10 ^3/uL (0-0.2); Basophils % (auto) 0.7 % (0.0-2.0); Eosinophils # (auto) 0.3 10 ^3/uL (0-0.8); Eosinophils % (auto) 3.3 % (0.0-7.0); Hemoglobin 8.9 g/dL (13.5-17.5); Lymphocytes # (auto) 1.9 10 ^3/uL (0.4-5.4); Lymphocytes % (auto) 19.1 % (10.0-50.0); Mean Corpuscular Hemoglobin 19.5 pg (28.0-32.0); Mean Corpuscular Hgb Conc. 29.5 g/dL (32.0-36.0); Mean Corpuscular Volume 66.1 fL (80.0-100.0); Monocytes # (auto) 1.4 10 ^3/uL (0-1.3); Monocytes % (auto) 14.2 % (0.0-12.0); Neutrophils # (auto) 6.2 10 ^3/uL (1.6-8.6); Neutrophils % (auto) 62.7 % (37.0-80.0); Nucleated Red Blood Cells % 0.2 %; Red Blood Cells 4.54 10^6/uL (4.5-5.90); White Blood Cell 9.9 10^3/uL (4.4-10.8)
[2022-01-29] MEDS: DAKINS QUARTER STR 0.125% (NaHypochlorite) 473 ML TOPICAL SOL TOP SCH (09:21)
[2022-01-29 13:00] VITALS: BP 131/90
[2022-01-29] MEDS: CALCIUM ACETATE 667 MG CAP PO SCH ×2 (14:00→21:49)
[2022-01-29 17:00] VITALS: BP 126/80
[2022-01-29] MEDS: LORazepam 2MG/ML-1ML VIAL IV PRN (21:54)
[2022-01-29 22:00] VITALS: BP 112/62
[2022-01-30] MEDS: IPRATROPIUM BROM 0.5 MG/2.5ML INH SOL NEB SCH ×5 (00:41→18:00)
[2022-01-30] MEDS: ALBUTEROL SULF 2.5 MG/0.5ML(0.5%) NEB SOLN NEB SCH ×5 (00:41→18:00)
[2022-01-30 00:57] VITALS: BP 112/62
[2022-01-30] MEDS: TEMAZEPAM 15 MG CAP PO PRN (01:00)
[2022-01-30 05:00] VITALS: BP 117/67
[2022-01-30] MEDS: FUROSEMIDE 20 MG/2 ML VIAL IV SCH ×2 (05:57→18:00)
[2022-01-30] MEDS: ACCU-CHEK COMFORT CURVE STRIP VI SCH ×3 (05:57→18:12)
[2022-01-30] MEDS: InsuLIN REG 1unit/0.01ml Soln (100units/ml) SC SCH ×3 (05:58→17:00)
[2022-01-30] MEDS: CALCIUM ACETATE 667 MG CAP PO SCH ×2 (06:00→13:28)
[2022-01-30 09:00] VITALS: BP 123/77
[2022-01-30] MEDS: AMIODARONE HCL 200 MG TAB PO SCH (09:27)
[2022-01-30] MEDS: METOPROLOL SUCCINATE XL 50 MG TAB PO SCH (09:28)
[2022-01-30 13:00] VITALS: BP 113/72
[2022-01-30 16:52] VITALS: BP_SYST 108; BP_SYST 114; BP_DIAS 57; BP_DIAS 66
[2022-01-30 17:11] VITALS: BP 114/66
[2022-01-30] MEDS: DAKINS QUARTER STR 0.125% (NaHypochlorite) 473 ML TOPICAL SOL TOP SCH (18:12)
== END 2022-01-30 19:58 | DRG 870 ==
LOC: EDBD 11:49 → ER 11:49 → TELE 15:35 → ICU CENTRL 01-08 09:15 → TELE-WESTW 01-18 01:15 → TELE-CENTR 01-26 21:28
PROVIDERS: ADMIT Registered Nurse; ATTEND Internal Medicine Pulmonary Disease
PROC: 5A1955Z Respiratory Ventilation, Greater than 96 Consecutive Hours (ICD-10-PCS; 2022-01-07)
PROC: 0BH17EZ Insertion of Endotracheal Airway into Trachea, Via Natural or Artificial Opening (ICD-10-PCS; 2022-01-07)
PROC: 02HV33Z Insertion of Infusion Device into Superior Vena Cava, Percutaneous Approach (ICD-10-PCS; 2022-01-08)
PROC: 5A09357 Assistance with Respiratory Ventilation, Less than 24 Consecutive Hours, Continuous Positive Airway Pressure (ICD-10-PCS; principal; 2022-01-21)
DX: A41.9 Sepsis, unspecified organism (principal); J96.01 Acute respiratory failure with hypoxia; R65.21 Severe sepsis with septic shock; N17.0 Acute kidney failure with tubular necrosis; I50.31 Acute diastolic (congestive) heart failure; J18.9 Pneumonia, unspecified organism; L03.114 Cellulitis of left upper limb; E87.0 Hyperosmolality and hypernatremia; E87.1 Hypo-osmolality and hyponatremia; J98.11 Atelectasis; N18.4 Chronic kidney disease, stage 4 (severe); Z20.822 Contact with and (suspected) exposure to COVID-19; E66.01 Morbid (severe) obesity due to excess calories; D50.9 Iron deficiency anemia, unspecified; E83.42 Hypomagnesemia; M19.90 Unspecified osteoarthritis, unspecified site; E11.22 Type 2 diabetes mellitus with diabetic chronic kidney disease; E83.39 Other disorders of phosphorus metabolism; E87.6 Hypokalemia; F15.10 Other stimulant abuse, uncomplicated; I48.91 Unspecified atrial fibrillation; K59.00 Constipation, unspecified; Z68.34 Body mass index [BMI] 34.0-34.9, adult; Z59.00 Homelessness unspecified
CPT/HCPCS: 36415; 36600; 70450; 71045; 72192; 73200; 73502; 76775; 80048; 80053; 80061; 80307; 81003; 82306; 82550; 82570; 82728; 82805; 82962; 83036; 83540; 83550; 83605; 83735; 83880; 83970; 84100; 84132; 84156; 84300; 84443; 84550; 85007; 85025; 85027; 87040; 87070; 87077; 87081; 87086; 87205; 87426; 87804; 92507; 92610; 93005; 93306; 93971; 94002; 94003; 94640; 94644; 94660; 96365; 96368; 96375; 97110; 97163; 97530; 99291; C9113; G0378; J0696; J1815; J1956; J2001; J2250; J2405; J2704; J3480; J3490; J7042; J7060

== ENCOUNTER 2022-01-31 13:06 | Inpatient (IN) | payer MEDICARE, MEDICAID ==
[~2022-01-31] VITALS: Ht 182.9 cm; Wt 89.0 kg
[2022-01-31] MEDS ORDERED: SODIUM CHLORIDE 0.9% 1,000 ML IVB ONE (13:45)
[2022-01-31 17:24] LABS: Basophils # (auto) 0.1 10 ^3/uL (0-0.2); Basophils % (auto) 0.9 % (0.0-2.0); Eosinophils # (auto) 0.3 10 ^3/uL (0-0.8); Eosinophils % (auto) 3.1 % (0.0-7.0); Hematocrit 27.3 % (41.0-53.0); Hemoglobin 8.4 g/dL (13.5-17.5); Lymphocytes # (auto) 2.5 10 ^3/uL (0.4-5.4); Lymphocytes % (auto) 27.5 % (10.0-50.0); Mean Corpuscular Hemoglobin 19.9 pg (28.0-32.0); Mean Corpuscular Hgb Conc. 30.6 g/dL (32.0-36.0); Mean Corpuscular Volume 65.2 fL (80.0-100.0); Monocytes % (auto) 10.8 % (0.0-12.0); Neutrophils # (auto) 5.1 10 ^3/uL (1.6-8.6); Neutrophils % (auto) 57.7 % (37.0-80.0); Nucleated Red Blood Cells % 0.1 %; White Blood Cell 8.9 10^3/uL (4.4-10.8)
[2022-01-31 17:25] LABS: Red Cell Distribution Width 30.4 % (11.8-14.3)
[2022-01-31 17:40] LABS: Albumin 2.1 g/dL (3.4-5.0); BUN/Creatinine Ratio 20.5; Magnesium 1.7 mg/dL (1.6-2.6); Potassium 3.4 mmol/L (3.5-5.1)
[2022-01-31 17:43] LABS: Bilirubin, Total 0.5 mg/dL (0.2-1.0); Total Protein 6.1 g/dL (6.4-8.2)
[2022-01-31] MEDS ORDERED: ETOMIDATE (2MG/ML) 20ML VIAL IV ONE ×2 (20:46→21:30)
[2022-01-31] MEDS ORDERED: SUCCINYLCHOLINE CHLORIDE 20 MG/ML 10ML VIAL IV ONE ×2 (20:46→21:30)
[2022-01-31] MEDS ORDERED: NOREPINEPHRINE 8 MG/250ML KIT 250 ML IV ONE (21:01)
[2022-01-31] MEDS ORDERED: MIDAZOLAM DRIP 50 mg/50mL 50 ML IV ONE (21:01)
[2022-01-31] MEDS ORDERED: MIDAZOLAM HCL 5 MG/ML-1ML VIAL ONE (21:01)
[2022-01-31] MEDS: MIDAZOLAM DRIP 50 mg/50mL 50 ML IV SCH (21:05)
[2022-01-31] MEDS ORDERED: MIDAZOLAM HCL 5 MG/ML-1ML VIAL IV ONE (21:30)
[2022-01-31] MEDS ORDERED: PROPOFOL 100 ML IV ONE (21:47)
[2022-01-31] MEDS: PROPOFOL 100 ML IV SCH (21:49)
[2022-01-31 22:00] VITALS: BP 84/57
[2022-01-31] MEDS: NOREPINEPHRINE 8 MG/250ML KIT 250 ML IV SCH (22:04)
[2022-01-31 22:49] VITALS: BP 72/48
[2022-02-01] VITALS (12 sets, daily range): BP systolic 81–136; BP diastolic 47–67
[2022-02-01] MEDS ORDERED: D5W 5% 1,000 ML IV SCH (01:45)
[2022-02-01] MEDS ORDERED: ONDANSETRON HCL 4 MG/2 ML VIAL IV PRN (01:45)
[2022-02-01 04:29] LABS: Basophils # (auto) 0.1 10 ^3/uL (0-0.2); Basophils % (auto) 0.2 % (0.0-2.0); Eosinophils # (auto) 0.1 10 ^3/uL (0-0.8)
[2022-02-01 04:31] LABS: Eosinophils % (auto) 0.4 % (0.0-7.0); Hematocrit 32.5 % (41.0-53.0); Hemoglobin 9.6 g/dL (13.5-17.5); Lymphocytes # (auto) 2.1 10 ^3/uL (0.4-5.4); Lymphocytes % (auto) 7.3 % (10.0-50.0); Mean Corpuscular Hemoglobin 19.7 pg (28.0-32.0); Mean Corpuscular Hgb Conc. 29.5 g/dL (32.0-36.0); Mean Corpuscular Volume 66.9 fL (80.0-100.0); Monocytes # (auto) 0.9 10 ^3/uL (0-1.3); Monocytes % (auto) 3.3 % (0.0-12.0); Neutrophils # (auto) 25.8 10 ^3/uL (1.6-8.6); Neutrophils % (auto) 88.8 % (37.0-80.0); Nucleated Red Blood Cells % 0.1 %; Red Blood Cells 4.87 10^6/uL (4.5-5.90); White Blood Cell 29.1 10^3/uL (4.4-10.8)
[2022-02-01 04:46] LABS: Red Cell Distribution Width 30.9 % (11.8-14.3)
[2022-02-01 04:57] LABS: Potassium 3.5 mmol/L (3.5-5.1)
[2022-02-01 05:03] LABS: BUN/Creatinine Ratio 15.2; Calcium 8.1 mg/dL (8.5-10.1)
[2022-02-01 05:05] LABS: Lactic Acid w/Reflex 2.6 mmol/L (0.4-2.0)
[2022-02-01 07:37] LABS: Urine Bacteria NONE SEEN /hpf (None Seen); Urine Blood 3+ /uL (Negative); Urine Hyaline Cast FEW /lpf (0 - 2); Urine Mucus FEW (None Seen); Urine WBC 90 /hpf (0 - 3); Urine WBC Clumps PRESENT /hpf (None Seen)
[2022-02-01 07:45] LABS: Alcohol, Urine < 3.0 mg/dL (0-10); Amphetamine Screen, Urine NEGATIVE (NEGATIVE); Barbiturate Scree,Urine NEGATIVE (NEGATIVE); Benzodiazephine Screen, Urine POSITIVE (NEGATIVE); Cannabinoid Screen, Urine NEGATIVE (NEGATIVE); Cocaine Screen, Urine NEGATIVE (NEGATIVE); Opiate Scree,Urine NEGATIVE (NEGATIVE); Phencyclidine Screen, Urine NEGATIVE (NEGATIVE)
[2022-02-01] MEDS ORDERED: DOXYCYCLINE 100MG/250ML 250 ML IV ONE (10:00)
[2022-02-01] MEDS: PIPERACILLIN-TAZOB 3.375GM 100 ML IV SCH ×2 (14:15→18:43)
[2022-02-01] MEDS: MIDAZOLAM DRIP 50 mg/50mL 50 ML IV SCH (21:37)
[2022-02-01] MEDS: DOXYCYCLINE 100MG/250ML 250 ML IV SCH (22:37)
[2022-02-02] VITALS (33 sets, daily range): BP systolic 89–128; BP diastolic 41–69
[2022-02-02] MEDS: PIPERACILLIN-TAZOB 3.375GM 100 ML IV SCH ×4 (00:36→19:35)
[2022-02-02] MEDS: PROPOFOL 100 ML IV SCH ×2 (01:13→04:47)
[2022-02-02] MEDS: NOREPINEPHRINE 8 MG/250ML KIT 250 ML IV SCH (01:13)
[2022-02-02] MEDS: MIDAZOLAM DRIP 50 mg/50mL 50 ML IV SCH ×2 (02:48→12:56)
[2022-02-02 04:31] LABS: Basophils # (auto) 0.1 10 ^3/uL (0-0.2); Basophils % (auto) 0.4 % (0.0-2.0); Eosinophils # (auto) 0.7 10 ^3/uL (0-0.8); Eosinophils % (auto) 3.9 % (0.0-7.0); Hemoglobin 7.5 g/dL (13.5-17.5); Neutrophils % (auto) 79.9 % (37.0-80.0)
[2022-02-02 04:34] LABS: Hematocrit 24.6 % (41.0-53.0); Lymphocytes # (auto) 1.7 10 ^3/uL (0.4-5.4); Lymphocytes % (auto) 9.3 % (10.0-50.0); Mean Corpuscular Hemoglobin 19.9 pg (28.0-32.0); Mean Corpuscular Hgb Conc. 30.3 g/dL (32.0-36.0); Mean Corpuscular Volume 65.6 fL (80.0-100.0); Monocytes # (auto) 1.2 10 ^3/uL (0-1.3); Monocytes % (auto) 6.5 % (0.0-12.0); Neutrophils # (auto) 14.6 10 ^3/uL (1.6-8.6); Nucleated Red Blood Cells % 0.1 %; Red Blood Cells 3.75 10^6/uL (4.5-5.90); White Blood Cell 18.3 10^3/uL (4.4-10.8)
[2022-02-02 04:39] LABS: Red Cell Distribution Width 30.2 % (11.8-14.3)
[2022-02-02 04:45] LABS: Albumin 1.7 g/dL (3.4-5.0); BUN/Creatinine Ratio 17.6; Calcium 7.7 mg/dL (8.5-10.1); Magnesium 1.7 mg/dL (1.6-2.6); Potassium 3.3 mmol/L (3.5-5.1)
[2022-02-02 04:54] LABS: Bilirubin, Total 0.5 mg/dL (0.2-1.0); Total Protein 5.4 g/dL (6.4-8.2)
[2022-02-02] MEDS ORDERED: POTASSIUM EFFERVESENT TAB 25 MEQ GT ONE (09:30)
[2022-02-02] MEDS ORDERED: METOCLOPRAMIDE HCL 5MG/ml INJ 2ml VIAL IV PRN (09:45)
[2022-02-02] MEDS: DOXYCYCLINE 100MG/250ML 250 ML IV SCH ×2 (10:03→22:51)
[2022-02-02] MEDS: POTASSIUM CHL 20MEQ/100ML 100 ML IV SCH ×3 (10:09→14:32)
[2022-02-02] MEDS ORDERED: PANTOPRAZOLE 40 MG TAB PO ONE (10:30)
[2022-02-02] MEDS ORDERED: ATROPINE SULF 1 MG/10ml SYR IV ONE (10:30)
[2022-02-02] MEDS: PANTOPRAZOLE 40 MG TAB PO SCH (23:23)
[2022-02-03] VITALS (105 sets, daily range): BP systolic 111–150; BP diastolic 47–87
[2022-02-03] MEDS: PIPERACILLIN-TAZOB 3.375GM 100 ML IV SCH ×4 (00:22→17:42)
[2022-02-03] MEDS: MIDAZOLAM DRIP 50 mg/50mL 50 ML IV SCH ×2 (00:34→04:48)
[2022-02-03] MEDS: NOREPINEPHRINE 8 MG/250ML KIT 250 ML IV SCH (01:15)
[2022-02-03] MEDS: PROPOFOL 100 ML IV SCH (02:19)
[2022-02-03 05:29] LABS: Basophils # (auto) 0.1 10 ^3/uL (0-0.2); Hemoglobin 7.5 g/dL (13.5-17.5); Monocytes # (auto) 0.8 10 ^3/uL (0-1.3); White Blood Cell 12.4 10^3/uL (4.4-10.8)
[2022-02-03 05:31] LABS: Basophils % (auto) 0.5 % (0.0-2.0); Eosinophils # (auto) 0.5 10 ^3/uL (0-0.8); Eosinophils % (auto) 4.4 % (0.0-7.0); Hematocrit 24.4 % (41.0-53.0); Lymphocytes # (auto) 1.5 10 ^3/uL (0.4-5.4); Lymphocytes % (auto) 12.1 % (10.0-50.0); Mean Corpuscular Hemoglobin 20.1 pg (28.0-32.0); Mean Corpuscular Hgb Conc. 30.9 g/dL (32.0-36.0); Mean Corpuscular Volume 65.2 fL (80.0-100.0); Monocytes % (auto) 6.5 % (0.0-12.0); Neutrophils # (auto) 9.5 10 ^3/uL (1.6-8.6); Neutrophils % (auto) 76.5 % (37.0-80.0); Red Blood Cells 3.74 10^6/uL (4.5-5.90); Red Cell Distribution Width 30.4 % (11.8-14.3)
[2022-02-03 05:54] LABS: BUN/Creatinine Ratio 17.9; Calcium 7.9 mg/dL (8.5-10.1); Magnesium 1.8 mg/dL (1.6-2.6); Potassium 3.6 mmol/L (3.5-5.1)
[2022-02-03] MEDS: PANTOPRAZOLE 40 MG TAB PO SCH ×2 (08:14→22:14)
[2022-02-03] MEDS: DOXYCYCLINE 100MG/250ML 250 ML IV SCH ×2 (08:14→22:14)
[2022-02-03] MEDS: DAKINS QUARTER STR 0.125% (NaHypochlorite) 473 ML TOPICAL SOL TOP SCH (10:00)
[2022-02-03] MEDS ORDERED: DEXTROSE (50%) 50ML SYRG IV PRN (11:00)
[2022-02-03] MEDS ORDERED: Glucerna 1.2 Cal 1Liter BOTTLE GT SCH (11:00)
[2022-02-03] MEDS: InsuLIN REG 1unit/0.01ml Soln (100units/ml) SC SCH ×3 (11:30→22:00)
[2022-02-03] MEDS: ACCU-CHEK COMFORT CURVE STRIP VI SCH ×3 (11:53→22:14)
[2022-02-03] MEDS ORDERED: POTASSIUM EFFERVESENT TAB 25 MEQ GT ONE (13:00)
[2022-02-03] MEDS: MAGNESIUM SULFATE 1GM/100ML 100 ML IV SCH ×2 (13:46→16:06)
[2022-02-03] MEDS: Pro-Stat SF 30ml Vanilla GT SCH (22:14)
[2022-02-04] VITALS (103 sets, daily range): BP systolic 109–158; BP diastolic 57–88
[2022-02-04] MEDS: PIPERACILLIN-TAZOB 3.375GM 100 ML IV SCH ×4 (00:24→18:21)
[2022-02-04] MEDS: NOREPINEPHRINE 8 MG/250ML KIT 250 ML IV SCH (01:15)
[2022-02-04] MEDS: PROPOFOL 100 ML IV SCH (01:15)
[2022-02-04 05:36] LABS: Albumin 1.7 g/dL (3.4-5.0); Calcium 7.9 mg/dL (8.5-10.1); Magnesium 2.2 mg/dL (1.6-2.6); Potassium 3.7 mmol/L (3.5-5.1)
[2022-02-04 05:39] LABS: BUN/Creatinine Ratio 16.7
[2022-02-04 05:46] LABS: Basophils # (auto) 0.1 10 ^3/uL (0-0.2); Eosinophils # (auto) 0.7 10 ^3/uL (0-0.8); Eosinophils % (auto) 6.5 % (0.0-7.0); Hematocrit 25.6 % (41.0-53.0); Hemoglobin 7.7 g/dL (13.5-17.5); Lymphocytes # (auto) 2.2 10 ^3/uL (0.4-5.4); Lymphocytes % (auto) 21.4 % (10.0-50.0); Mean Corpuscular Hemoglobin 19.5 pg (28.0-32.0); Mean Corpuscular Volume 65.1 fL (80.0-100.0); Monocytes # (auto) 0.8 10 ^3/uL (0-1.3); Monocytes % (auto) 7.6 % (0.0-12.0); Neutrophils # (auto) 6.4 10 ^3/uL (1.6-8.6); Neutrophils % (auto) 63.5 % (37.0-80.0); Nucleated Red Blood Cells % 0.3 %; Red Blood Cells 3.93 10^6/uL (4.5-5.90); Red Cell Distribution Width 30.6 % (11.8-14.3); White Blood Cell 10.1 10^3/uL (4.4-10.8)
[2022-02-04 05:52] LABS: Bilirubin, Total 0.5 mg/dL (0.2-1.0); Phosphorus 2.4 mg/dL (2.5-4.90)
[2022-02-04] MEDS: ACCU-CHEK COMFORT CURVE STRIP VI SCH ×4 (06:19→22:06)
[2022-02-04] MEDS: InsuLIN REG 1unit/0.01ml Soln (100units/ml) SC SCH ×4 (06:19→22:00)
[2022-02-04] MEDS ORDERED: POTASSIUM PHOSPHATE 22 MEQ in SODIUM CHL 0.9% 100 ML IV ONE (09:15)
[2022-02-04] MEDS: Pro-Stat SF 30ml Vanilla GT SCH ×2 (10:00→22:05)
[2022-02-04] MEDS: DOXYCYCLINE 100MG/250ML 250 ML IV SCH ×2 (10:00→22:05)
[2022-02-04] MEDS: DAKINS QUARTER STR 0.125% (NaHypochlorite) 473 ML TOPICAL SOL TOP SCH (10:00)
[2022-02-04] MEDS: PANTOPRAZOLE 40 MG TAB PO SCH ×2 (10:00→22:06)
[2022-02-04] MEDS: MIDAZOLAM DRIP 50 mg/50mL 50 ML IV SCH (21:30)
[2022-02-05] VITALS (86 sets, daily range): BP systolic 86–155; BP diastolic 47–101
[2022-02-05] MEDS: PIPERACILLIN-TAZOB 3.375GM 100 ML IV SCH ×4 (01:00→20:45)
[2022-02-05] MEDS: NOREPINEPHRINE 8 MG/250ML KIT 250 ML IV SCH (01:15)
[2022-02-05] MEDS: PROPOFOL 100 ML IV SCH (01:15)
[2022-02-05] MEDS: ACCU-CHEK COMFORT CURVE STRIP VI SCH ×4 (06:15→22:50)
[2022-02-05] MEDS: InsuLIN REG 1unit/0.01ml Soln (100units/ml) SC SCH ×4 (06:15→22:50)
[2022-02-05] MEDS: DAKINS QUARTER STR 0.125% (NaHypochlorite) 473 ML TOPICAL SOL TOP SCH (10:00)
[2022-02-05] MEDS: Pro-Stat SF 30ml Vanilla GT SCH ×2 (10:28→21:52)
[2022-02-05] MEDS: PANTOPRAZOLE 40 MG TAB PO SCH ×2 (10:28→21:54)
[2022-02-05] MEDS: DOXYCYCLINE 100MG/250ML 250 ML IV SCH ×2 (10:28→22:50)
[2022-02-05] MEDS: MIDAZOLAM DRIP 50 mg/50mL 50 ML IV SCH (21:30)
[2022-02-06] VITALS (40 sets, daily range): BP systolic 114–178; BP diastolic 67–126
[2022-02-06] MEDS: NOREPINEPHRINE 8 MG/250ML KIT 250 ML IV SCH (01:15)
[2022-02-06] MEDS: PROPOFOL 100 ML IV SCH (01:15)
[2022-02-06] MEDS: PIPERACILLIN-TAZOB 3.375GM 100 ML IV SCH ×3 (01:40→12:54)
[2022-02-06] MEDS: InsuLIN REG 1unit/0.01ml Soln (100units/ml) SC SCH ×4 (06:57→22:00)
[2022-02-06] MEDS: ACCU-CHEK COMFORT CURVE STRIP VI SCH ×4 (06:57→22:04)
[2022-02-06] MEDS: PANTOPRAZOLE 40 MG TAB PO SCH ×2 (08:49→22:03)
[2022-02-06] MEDS: Pro-Stat SF 30ml Vanilla GT SCH ×2 (08:50→22:00)
[2022-02-06] MEDS: DAKINS QUARTER STR 0.125% (NaHypochlorite) 473 ML TOPICAL SOL TOP SCH (08:51)
[2022-02-06] MEDS: DOXYCYCLINE 100MG/250ML 250 ML IV SCH (08:51)
[2022-02-06 09:13] LABS: Basophils # (auto) 0.1 10 ^3/uL (0-0.2); Eosinophils # (auto) 0.6 10 ^3/uL (0-0.8); Hemoglobin 8.9 g/dL (13.5-17.5); Lymphocytes # (auto) 1.8 10 ^3/uL (0.4-5.4); Monocytes # (auto) 0.8 10 ^3/uL (0-1.3); White Blood Cell 10.3 10^3/uL (4.4-10.8)
[2022-02-06 09:17] LABS: Basophils % (auto) 1.1 % (0.0-2.0); Eosinophils % (auto) 5.7 % (0.0-7.0); Hematocrit 29.7 % (41.0-53.0); Lymphocytes % (auto) 17.8 % (10.0-50.0); Mean Corpuscular Hemoglobin 20.5 pg (28.0-32.0); Mean Corpuscular Hgb Conc. 30.2 g/dL (32.0-36.0); Monocytes % (auto) 7.5 % (0.0-12.0); Neutrophils % (auto) 67.9 % (37.0-80.0); Nucleated Red Blood Cells % 0.1 %; Red Blood Cells 4.37 10^6/uL (4.5-5.90)
[2022-02-06 09:18] LABS: Albumin 2.1 g/dL (3.4-5.0); Calcium 8.1 mg/dL (8.5-10.1); Potassium 4.2 mmol/L (3.5-5.1)
[2022-02-06 09:23] LABS: BUN/Creatinine Ratio 14.3; Bilirubin, Total 0.6 mg/dL (0.2-1.0); Total Protein 6.3 g/dL (6.4-8.2)
[2022-02-06 09:28] LABS: Red Cell Distribution Width 30.1 % (11.8-14.3)
[2022-02-06] MEDS ORDERED: HALOPERIDOL LACTATE 5 MG/ML INJ VIAL IM ONE (12:30)
[2022-02-06] MEDS: MEROPENEM 1GM IVPB 100 ML IV SCH ×2 (17:25→23:48)
[2022-02-06] MEDS: HALOPERIDOL LACTATE 5 MG/ML INJ VIAL IM PRN (18:52)
[2022-02-07] VITALS (12 sets, daily range): BP systolic 104–152; BP diastolic 46–90
[2022-02-07 05:36] LABS: Calcium 8.3 mg/dL (8.5-10.1); Magnesium 1.6 mg/dL (1.6-2.6); Potassium 3.6 mmol/L (3.5-5.1)
[2022-02-07] MEDS: ACCU-CHEK COMFORT CURVE STRIP VI SCH ×4 (06:42→22:00)
[2022-02-07] MEDS: InsuLIN REG 1unit/0.01ml Soln (100units/ml) SC SCH ×4 (06:42→22:00)
[2022-02-07] MEDS: MEROPENEM 1GM IVPB 100 ML IV SCH ×2 (08:15→16:17)
[2022-02-07] MEDS: Pro-Stat SF 30ml Vanilla GT SCH ×2 (10:00→22:00)
[2022-02-07] MEDS: LEVOTHYROXINE SODIUM 100 MCG/5 ML INJ IV SCH (10:13)
[2022-02-07] MEDS: DAKINS QUARTER STR 0.125% (NaHypochlorite) 473 ML TOPICAL SOL TOP SCH (10:13)
[2022-02-07] MEDS: PANTOPRAZOLE 40 MG TAB PO SCH ×2 (10:13→22:42)
[2022-02-07] MEDS: HALOPERIDOL LACTATE 5 MG/ML INJ VIAL IM PRN (19:57)
[2022-02-07] MEDS: QUEtiapine FUMARATE 25 MG TAB PO SCH (22:42)
[2022-02-08] MEDS: MEROPENEM 1GM IVPB 100 ML IV SCH ×3 (00:28→16:46)
[2022-02-08 05:00] VITALS: BP 126/82
[2022-02-08 06:30] LABS: Basophils # (auto) 0.1 10 ^3/uL (0-0.2); Basophils % (auto) 0.9 % (0.0-2.0); Eosinophils # (auto) 0.3 10 ^3/uL (0-0.8); Neutrophils # (auto) 9.2 10 ^3/uL (1.6-8.6); Nucleated Red Blood Cells % 0.1 %
[2022-02-08 06:37] LABS: Eosinophils % (auto) 2.6 % (0.0-7.0); Hematocrit 28.7 % (41.0-53.0); Hemoglobin 8.6 g/dL (13.5-17.5); Lymphocytes # (auto) 1.8 10 ^3/uL (0.4-5.4); Lymphocytes % (auto) 14.1 % (10.0-50.0); Mean Corpuscular Hemoglobin 19.8 pg (28.0-32.0); Mean Corpuscular Hgb Conc. 29.9 g/dL (32.0-36.0); Mean Corpuscular Volume 66.2 fL (80.0-100.0); Monocytes # (auto) 1.1 10 ^3/uL (0-1.3); Monocytes % (auto) 8.7 % (0.0-12.0); Neutrophils % (auto) 73.7 % (37.0-80.0); Red Blood Cells 4.34 10^6/uL (4.5-5.90); White Blood Cell 12.4 10^3/uL (4.4-10.8)
[2022-02-08] MEDS: InsuLIN REG 1unit/0.01ml Soln (100units/ml) SC SCH ×4 (06:40→22:00)
[2022-02-08] MEDS: ACCU-CHEK COMFORT CURVE STRIP VI SCH ×4 (06:40→22:28)
[2022-02-08 06:43] LABS: Red Cell Distribution Width 30.7 % (11.8-14.3)
[2022-02-08 07:20] LABS: BUN/Creatinine Ratio 12.1; Bilirubin, Total 0.5 mg/dL (0.2-1.0); Calcium 8.1 mg/dL (8.5-10.1); Magnesium 1.4 mg/dL (1.6-2.6); Total Protein 6.5 g/dL (6.4-8.2)
[2022-02-08 09:58] VITALS: BP 125/79
[2022-02-08] MEDS: LEVOTHYROXINE SODIUM 100 MCG/5 ML INJ IV SCH (10:00)
[2022-02-08] MEDS: Pro-Stat SF 30ml Vanilla GT SCH ×2 (10:00→22:00)
[2022-02-08] MEDS: PANTOPRAZOLE 40 MG TAB PO SCH (10:00)
[2022-02-08] MEDS: DAKINS QUARTER STR 0.125% (NaHypochlorite) 473 ML TOPICAL SOL TOP SCH (11:12)
[2022-02-08 13:00] VITALS: BP 129/81
[2022-02-08] MEDS: LORazepam 2MG/ML-1ML VIAL IV PRN (14:43)
[2022-02-08 17:09] VITALS: BP 141/92
[2022-02-08 22:00] VITALS: BP 131/88
[2022-02-08] MEDS: QUEtiapine FUMARATE 25 MG TAB PO SCH (22:27)
[2022-02-08] MEDS: MAGNESIUM OXIDE 400 MG TAB PO SCH (22:27)
[2022-02-08] MEDS: MAGNESIUM SULFATE 1GM/100ML 100 ML IV SCH ×2 (22:28→23:54)
[2022-02-08] MEDS: PANTOPRAZOLE 40 MG/10 ML VIAL INJ IV SCH (22:28)
[2022-02-09] MEDS: MEROPENEM 1GM IVPB 100 ML IV SCH ×3 (01:09→16:34)
[2022-02-09 05:00] VITALS: BP 108/72
[2022-02-09 06:08] LABS: Basophils # (auto) 0.1 10 ^3/uL (0-0.2); Hematocrit 30.2 % (41.0-53.0); Mean Corpuscular Hgb Conc. 29.9 g/dL (32.0-36.0)
[2022-02-09 06:09] LABS: Basophils % (auto) 1.1 % (0.0-2.0); Eosinophils # (auto) 0.4 10 ^3/uL (0-0.8); Eosinophils % (auto) 3.6 % (0.0-7.0); Lymphocytes # (auto) 2.3 10 ^3/uL (0.4-5.4); Lymphocytes % (auto) 22.8 % (10.0-50.0); Mean Corpuscular Hemoglobin 20.6 pg (28.0-32.0); Mean Corpuscular Volume 68.9 fL (80.0-100.0); Monocytes # (auto) 1.3 10 ^3/uL (0-1.3); Monocytes % (auto) 12.5 % (0.0-12.0); Nucleated Red Blood Cells % 0.2 %; Red Blood Cells 4.38 10^6/uL (4.5-5.90)
[2022-02-09] MEDS: InsuLIN REG 1unit/0.01ml Soln (100units/ml) SC SCH ×4 (06:50→23:00)
[2022-02-09] MEDS: ACCU-CHEK COMFORT CURVE STRIP VI SCH ×4 (06:50→23:00)
[2022-02-09 08:47] VITALS: BP 118/71
[2022-02-09] MEDS: Pro-Stat SF 30ml Vanilla GT SCH ×2 (10:00→22:00)
[2022-02-09] MEDS: DAKINS QUARTER STR 0.125% (NaHypochlorite) 473 ML TOPICAL SOL TOP SCH (10:06)
[2022-02-09] MEDS: MAGNESIUM OXIDE 400 MG TAB PO SCH ×2 (10:06→22:18)
[2022-02-09] MEDS: LEVOTHYROXINE SODIUM 100 MCG/5 ML INJ IV SCH (10:07)
[2022-02-09] MEDS: PANTOPRAZOLE 40 MG/10 ML VIAL INJ IV SCH ×2 (10:07→22:18)
[2022-02-09 12:00] VITALS: BP 122/79
[2022-02-09 16:00] VITALS: BP_SYST 104; BP_SYST 120; BP_DIAS 65; BP_DIAS 89
[2022-02-09 22:00] VITALS: BP 119/70
[2022-02-09] MEDS: QUEtiapine FUMARATE 25 MG TAB PO SCH (22:18)
[2022-02-10] MEDS: MEROPENEM 1GM IVPB 100 ML IV SCH ×4 (00:24→23:39)
[2022-02-10] MEDS: LORazepam 2MG/ML-1ML VIAL IV PRN ×3 (03:05→18:43)
[2022-02-10 05:00] VITALS: BP 119/83
[2022-02-10] MEDS: ACCU-CHEK COMFORT CURVE STRIP VI SCH ×4 (06:32→21:58)
[2022-02-10] MEDS: InsuLIN REG 1unit/0.01ml Soln (100units/ml) SC SCH ×4 (06:32→21:58)
[2022-02-10 09:04] VITALS: BP 122/86
[2022-02-10] MEDS ORDERED: FUROSEMIDE 20 MG/2 ML VIAL IV ONE (09:15)
[2022-02-10] MEDS: LEVOTHYROXINE SODIUM 100 MCG/5 ML INJ IV SCH (09:47)
[2022-02-10] MEDS: PANTOPRAZOLE 40 MG/10 ML VIAL INJ IV SCH ×2 (09:47→21:56)
[2022-02-10] MEDS: MAGNESIUM OXIDE 400 MG TAB PO SCH ×2 (09:47→21:57)
[2022-02-10] MEDS: Pro-Stat SF 30ml Vanilla GT SCH ×2 (10:00→21:56)
[2022-02-10] MEDS: DAKINS QUARTER STR 0.125% (NaHypochlorite) 473 ML TOPICAL SOL TOP SCH (10:26)
[2022-02-10] MEDS ORDERED: ALBUTEROL SULF 2.5 MG/0.5ML(0.5%) NEB SOLN NEB PRN (12:30)
[2022-02-10] MEDS ORDERED: IPRATROPIUM BROM 0.5 MG/2.5ML INH SOL NEB PRN (12:30)
[2022-02-10 13:15] VITALS: BP 110/71
[2022-02-10 14:37] VITALS: BP 110/71
[2022-02-10 16:31] VITALS: BP 139/76
[2022-02-10] MEDS: FUROSEMIDE 20 MG/2 ML VIAL IV SCH (17:31)
[2022-02-10] MEDS: QUEtiapine FUMARATE 25 MG TAB PO SCH (21:57)
[2022-02-10 22:00] VITALS: BP 114/77
[2022-02-11] MEDS: LORazepam 2MG/ML-1ML VIAL IV PRN ×2 (01:13→23:21)
[2022-02-11 05:00] VITALS: BP 121/73
[2022-02-11] MEDS: FUROSEMIDE 20 MG/2 ML VIAL IV SCH ×2 (05:16→18:35)
[2022-02-11 05:54] LABS: Basophils # (auto) 0.1 10 ^3/uL (0-0.2); Eosinophils # (auto) 0.3 10 ^3/uL (0-0.8); Eosinophils % (auto) 2.7 % (0.0-7.0); Hemoglobin 8.7 g/dL (13.5-17.5); Lymphocytes # (auto) 2.6 10 ^3/uL (0.4-5.4); Monocytes # (auto) 1.1 10 ^3/uL (0-1.3); Neutrophils # (auto) 6.7 10 ^3/uL (1.6-8.6)
[2022-02-11 06:05] LABS: Basophils % (auto) 1.1 % (0.0-2.0); Hematocrit 29.3 % (41.0-53.0); Mean Corpuscular Hgb Conc. 29.6 g/dL (32.0-36.0); Mean Corpuscular Volume 67.6 fL (80.0-100.0); Monocytes % (auto) 10.2 % (0.0-12.0); Red Blood Cells 4.34 10^6/uL (4.5-5.90); White Blood Cell 10.8 10^3/uL (4.4-10.8)
[2022-02-11 06:19] LABS: Potassium 4.9 mmol/L (3.5-5.1)
[2022-02-11 06:27] LABS: Red Cell Distribution Width 30.7 % (11.8-14.3)
[2022-02-11 06:28] LABS: Calcium 8.1 mg/dL (8.5-10.1); Magnesium 2.2 mg/dL (1.6-2.6); Phosphorus 2.7 mg/dL (2.5-4.90)
[2022-02-11] MEDS: ACCU-CHEK COMFORT CURVE STRIP VI SCH ×4 (06:51→21:10)
[2022-02-11] MEDS: InsuLIN REG 1unit/0.01ml Soln (100units/ml) SC SCH ×4 (06:51→21:10)
[2022-02-11 08:54] VITALS: BP 133/88
[2022-02-11] MEDS: Pro-Stat SF 30ml Vanilla GT SCH ×2 (10:00→21:59)
[2022-02-11] MEDS: MAGNESIUM OXIDE 400 MG TAB PO SCH ×2 (10:00→21:10)
[2022-02-11] MEDS: MEROPENEM 1GM IVPB 100 ML IV SCH ×3 (10:06→23:44)
[2022-02-11] MEDS: LEVOTHYROXINE SODIUM 100 MCG/5 ML INJ IV SCH (10:07)
[2022-02-11] MEDS: PANTOPRAZOLE 40 MG/10 ML VIAL INJ IV SCH ×2 (10:07→21:09)
[2022-02-11] MEDS: DAKINS QUARTER STR 0.125% (NaHypochlorite) 473 ML TOPICAL SOL TOP SCH (10:08)
[2022-02-11 13:06] VITALS: BP 135/67
[2022-02-11 14:54] LABS: INR 1.15 (0.9-1.15); Partial Thromboplastin Time 29.1 sec (24.6-33.4)
[2022-02-11 16:55] VITALS: BP 118/69
[2022-02-11] MEDS: QUEtiapine FUMARATE 25 MG TAB PO SCH (21:09)
[2022-02-11] MEDS ORDERED: ENOXAPARIN SOD 100 MG/1 ML SYRINGE SC ONE (21:30)
[2022-02-11] MEDS: ENOXAPARIN SOD 100 MG/1 ML SYRINGE SC SCH (21:59)
[2022-02-11 22:00] VITALS: BP 96/68
[2022-02-12] MEDS ORDERED: MORPHINE SULFATE INJ 2 MG/ml SYRG IV PRN ×2 (05:00→16:45)
[2022-02-12 05:06] VITALS: BP 105/65
[2022-02-12] MEDS: FUROSEMIDE 20 MG/2 ML VIAL IV SCH ×2 (05:16→18:37)
[2022-02-12] MEDS: ACCU-CHEK COMFORT CURVE STRIP VI SCH ×4 (05:51→22:00)
[2022-02-12] MEDS: InsuLIN REG 1unit/0.01ml Soln (100units/ml) SC SCH ×4 (05:51→22:00)
[2022-02-12 06:27] LABS: Basophils # (auto) 0.1 10 ^3/uL (0-0.2); Basophils % (auto) 0.9 % (0.0-2.0); Eosinophils # (auto) 0.5 10 ^3/uL (0-0.8); Eosinophils % (auto) 4.6 % (0.0-7.0); Hematocrit 29.6 % (41.0-53.0); Hemoglobin 8.8 g/dL (13.5-17.5); Lymphocytes # (auto) 3.5 10 ^3/uL (0.4-5.4); Lymphocytes % (auto) 30.4 % (10.0-50.0); Mean Corpuscular Hemoglobin 20.2 pg (28.0-32.0); Mean Corpuscular Hgb Conc. 29.9 g/dL (32.0-36.0); Mean Corpuscular Volume 67.7 fL (80.0-100.0); Monocytes % (auto) 9.2 % (0.0-12.0); Neutrophils # (auto) 6.2 10 ^3/uL (1.6-8.6); Neutrophils % (auto) 54.9 % (37.0-80.0); Nucleated Red Blood Cells % 0.1 %; Red Blood Cells 4.37 10^6/uL (4.5-5.90); White Blood Cell 11.4 10^3/uL (4.4-10.8)
[2022-02-12 06:28] LABS: Red Cell Distribution Width 31.1 % (11.8-14.3)
[2022-02-12 06:46] LABS: Potassium 3.9 mmol/L (3.5-5.1)
[2022-02-12 06:55] LABS: Albumin 2.2 g/dL (3.4-5.0); BUN/Creatinine Ratio 23.9; Calcium 8.4 mg/dL (8.5-10.1); Magnesium 2.4 mg/dL (1.6-2.6); Phosphorus 2.9 mg/dL (2.5-4.90); Total Protein 6.6 g/dL (6.4-8.2)
[2022-02-12 09:00] VITALS: BP 103/71
[2022-02-12] MEDS: Pro-Stat SF 30ml Vanilla GT SCH ×2 (10:00→22:46)
[2022-02-12] MEDS: PANTOPRAZOLE 40 MG/10 ML VIAL INJ IV SCH ×2 (10:17→21:41)
[2022-02-12] MEDS: MEROPENEM 1GM IVPB 100 ML IV SCH ×2 (10:17→16:43)
[2022-02-12] MEDS: LEVOTHYROXINE SODIUM 100 MCG/5 ML INJ IV SCH (10:17)
[2022-02-12] MEDS: MAGNESIUM OXIDE 400 MG TAB PO SCH ×2 (10:17→21:44)
[2022-02-12] MEDS: ENOXAPARIN SOD 100 MG/1 ML SYRINGE SC SCH ×2 (10:17→21:42)
[2022-02-12] MEDS: DAKINS QUARTER STR 0.125% (NaHypochlorite) 473 ML TOPICAL SOL TOP SCH (10:18)
[2022-02-12 13:00] VITALS: BP 128/80
[2022-02-12] MEDS ORDERED: HYDROcodone-ACET 5/325MG TAB PO PRN (16:45)
[2022-02-12 17:00] VITALS: BP 101/65
[2022-02-12] MEDS ORDERED: WARFARIN SODIUM 10 MG TAB PO ONE (18:45)
[2022-02-12] MEDS: QUEtiapine FUMARATE 25 MG TAB PO SCH (21:41)
[2022-02-12 22:00] VITALS: BP 113/56
[2022-02-12] MEDS: LORazepam 2MG/ML-1ML VIAL IV PRN (22:46)
[2022-02-13] MEDS: MEROPENEM 1GM IVPB 100 ML IV SCH ×2 (00:26→08:56)
[2022-02-13] MEDS: LORazepam 2MG/ML-1ML VIAL IV PRN (02:40)
[2022-02-13 05:00] VITALS: BP 89/62
[2022-02-13] MEDS ORDERED: ALBUTEROL MEDNEB 2.5 mg/3ml NEB ONE (05:46)
[2022-02-13] MEDS: FUROSEMIDE 20 MG/2 ML VIAL IV SCH (05:48)
[2022-02-13] MEDS: InsuLIN REG 1unit/0.01ml Soln (100units/ml) SC SCH ×2 (05:48→11:30)
[2022-02-13] MEDS: ACCU-CHEK COMFORT CURVE STRIP VI SCH ×2 (05:49→12:46)
[2022-02-13 06:28] LABS: Basophils # (auto) 0.1 10 ^3/uL (0-0.2); Eosinophils # (auto) 0.5 10 ^3/uL (0-0.8); Hemoglobin 9.2 g/dL (13.5-17.5); Lymphocytes # (auto) 3.8 10 ^3/uL (0.4-5.4); Monocytes # (auto) 0.8 10 ^3/uL (0-1.3); Nucleated Red Blood Cells % 0.1 %; White Blood Cell 10.7 10^3/uL (4.4-10.8)
[2022-02-13 06:31] LABS: Basophils % (auto) 1.1 % (0.0-2.0); Eosinophils % (auto) 4.8 % (0.0-7.0); Hematocrit 30.4 % (41.0-53.0); Lymphocytes % (auto) 35.9 % (10.0-50.0); Mean Corpuscular Hemoglobin 20.5 pg (28.0-32.0); Mean Corpuscular Hgb Conc. 30.3 g/dL (32.0-36.0); Mean Corpuscular Volume 67.8 fL (80.0-100.0); Monocytes % (auto) 7.5 % (0.0-12.0); Neutrophils # (auto) 5.4 10 ^3/uL (1.6-8.6); Neutrophils % (auto) 50.7 % (37.0-80.0); Red Blood Cells 4.48 10^6/uL (4.5-5.90)
[2022-02-13 06:33] LABS: Red Cell Distribution Width 31.3 % (11.8-14.3)
[2022-02-13 06:39] LABS: INR 1.19 (0.9-1.15)
[2022-02-13 06:56] LABS: BUN/Creatinine Ratio 25.7; Calcium 8.6 mg/dL (8.5-10.1)
[2022-02-13] MEDS: MAGNESIUM OXIDE 400 MG TAB PO SCH (09:15)
[2022-02-13] MEDS: ENOXAPARIN SOD 100 MG/1 ML SYRINGE SC SCH (09:25)
[2022-02-13] MEDS: Pro-Stat SF 30ml Vanilla GT SCH (09:26)
[2022-02-13] MEDS: PANTOPRAZOLE 40 MG/10 ML VIAL INJ IV SCH (12:45)
[2022-02-13] MEDS: LEVOTHYROXINE SODIUM 100 MCG/5 ML INJ IV SCH (12:45)
[2022-02-13] MEDS: DAKINS QUARTER STR 0.125% (NaHypochlorite) 473 ML TOPICAL SOL TOP SCH (12:45)
[2022-02-13] MEDS ORDERED: WARFARIN SODIUM 10 MG TAB PO ONE (13:00)
[2022-02-13 14:25] VITALS: BP 89/62
== END 2022-02-13 18:26 | disposition hospice, home (50) | DRG 870 ==
LOC: ER 13:06 → EDBD 13:06 → TELE 02-01 01:43 → ICU CENTRL 02-02 18:23 → TELE-WESTW 02-07 16:54
PROVIDERS: ADMIT Hospitalist; ATTEND Internal Medicine
PROC: 5A1955Z Respiratory Ventilation, Greater than 96 Consecutive Hours (ICD-10-PCS; principal; 2022-01-31)
PROC: 0BH17EZ Insertion of Endotracheal Airway into Trachea, Via Natural or Artificial Opening (ICD-10-PCS; 2022-01-31)
PROC: 05HM33Z Insertion of Infusion Device into Right Internal Jugular Vein, Percutaneous Approach (ICD-10-PCS; 2022-02-01)
PROC: B543ZZA Ultrasonography of Right Jugular Veins, Guidance (ICD-10-PCS; 2022-02-01)
DX: A41.9 Sepsis, unspecified organism (principal); E43 Unspecified severe protein-calorie malnutrition; R65.21 Severe sepsis with septic shock; G92.9 Unspecified toxic encephalopathy; J69.0 Pneumonitis due to inhalation of food and vomit; I26.99 Other pulmonary embolism without acute cor pulmonale; J96.01 Acute respiratory failure with hypoxia; J98.11 Atelectasis; L03.114 Cellulitis of left upper limb; E11.9 Type 2 diabetes mellitus without complications; I11.0 Hypertensive heart disease with heart failure; I50.9 Heart failure, unspecified; E03.9 Hypothyroidism, unspecified; Z66 Do not resuscitate; E66.01 Morbid (severe) obesity due to excess calories; Z20.822 Contact with and (suspected) exposure to COVID-19; B96.1 Klebsiella pneumoniae [K. pneumoniae] as the cause of diseases classified elsewhere; Z59.00 Homelessness unspecified; Z79.84 Long term (current) use of oral hypoglycemic drugs; Z68.27 Body mass index [BMI] 27.0-27.9, adult
CPT/HCPCS: 36415; 36600; 70450; 71045; 71275; 72125; 80048; 80053; 80307; 81001; 82805; 82962; 83605; 83735; 83880; 84100; 84439; 84443; 84484; 85025; 85379; 85610; 85730; 87040; 87070; 87077; 87081; 87186; 87205; 87426; 87493; 92610; 93005; 93970; 94002; 94003; 94640; 96361; 96365; 97110; 97116; 97163; 97530; C9113; G0378; J0330; J1815; J2185; J2250; J2543; J2704; J3480; J3490; J7060